=== PATIENT | female | born 1990 | race Caucasian/White ===

== ENCOUNTER 2024-11-11 08:14 | Outpatient (AMB) | payer OTHER, SELFPAY ==
--- NOTE | 2024-11-11 13:04 | MHC.OFFVISWM ---
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: Details: Start time: 12.55pm, End time: 1.40pm ?I spent 40 minutes speaking with the patient on the phone plus an additional 5 minutes reviewing and updating records for a total of 45 minutes HPI Comments Details: Previous weight loss efforts: Wegovy up to 2.4mg: lost 50lbs, Zepbound up to 7.5mg: no weight loss, Atkins, Grapefruit diet Wakes up: 6.20am, Sleeps: 8pm Breakfast: skips Lunch: 12pm (Fairlife or Nutri,or food) Dinner: 6pm (rice, potatoes, or pasta, protein) Snacks: 4pm (chips, or candy) Exercise: none Beverages: Coffee: none, Tea: none, Soda: none, Juice: none, ETOH: none PFSH Medical History (Updated 11/11/24 @ 13:07 by Dax Mercado MD) GERD (gastroesophageal reflux disease) Anxiety Depression Morbid obesity Surgical History (Updated 11/08/24 @ 14:04 by Jennifer Magana CMA) Hx of wisdom tooth extraction Family History (Updated 11/08/24 @ 13:30 by Jennifer Magana CMA) Mother No problems noted. Father No problems noted. Social History (Updated 11/08/24 @ 13:30 by Jennifer Magana CMA) Alcohol intake: never Patient Tobacco Use Status: Never used Tobacco Telehealth Telehealth Telehealth Platform: Telephone Location of provider rendering services: practice address Location of patient: address on file Patient Identification confirmed using: Name, : Yes Telehealth method: voice only Patient verbally consented to treatment: Yes Patient verbally consented to billing insurance company: Yes Patient informed of any privacy concerns related to visit: Yes Minutes spent on Phone/Video with Pt.: 45 Assessment & Plan Assessment & Plan (1) Morbid obesity: Code(s): E66.01 - Morbid (severe) obesity due to excess calories Category: Medical Plan: 1.? Plan for lap sleeve gastrectomy. If diaphragmatic or ventral hernias are present at time of surgery, these will be repaired laparoscopically as well. I emphasized the importance of close follow-up, adherence to instructions and good communication. The surgery does not replace the need to change your lifestlyle which is the cause of the obesity problem. The surgery provides the motivation to try again to change your lifestyle, it reduces the appetite and make the transition to a better lifestyle easier and doubles the amount of weight you would lose compared to doing the lifestyle change without the surgery. You will need to be on a liquid diet with protein shakes for 2 weeks before surgery to maximize weight loss and boost your nutritional status to recover better from surgery and also for the first two weeks after surgery to let the stomach heal before we introduce other foods. After the first 2 weeks we will introduce protein bars and soft foods like scrambled eggs, cottage cheese and yogurt and after the 6th week will introduce meat, fish and cooked vegetables in small amounts. Over time you should be able to eat everything in small amounts. Side effects like nausea, vomiting, heartburn or abdominal pain are not common in the practice unless you are not following in the practice. This operation requires lifetime commitment to following in our practice and communication with me. You will much less weight and experience side effects if you don?t communicate or not following in the practice. Complications are rare and in our practice is about 1/10 of the national average. However, you can develop bleeding that may require transfusion (hasn?t happened for year in the practice), you may from complications (we did not have any deaths in the practice) and infections. Infections are usually a result of breakdown in communication or not understanding or following directions correctly. They are difficult to treat, they can happen during the first 6 weeks, they may require to be in the hospital for weeks or even months, not being able to eat by mouth and you may have drains and surgeries to try and correct the issue. Other risks and complications include possible conversion to an open procedure, leaks, small bowel obstruction, blood clots, cardiac, or pulmonary complications, as fdc complications such as ulcers, insufficient weight loss and vitamin deficiencies. 2. Nutritional counseling. Start with one premade FAIRLIFE protein shake (mix 4oz of Fairlife mixed with 4oz low fat unsweetened almond milk each) at 7am-9am, one protein bar (Fit Crunch protein bar, buy at [employer], or [employer]) at 10am-12pm, another premade FAIRLIFE protein shake (mix 4oz of Fairlife mixed with 4oz low fat unsweetened almond milk each) at 1pm-3pm, another Fit Crunch protein bar,? dinner at 7pm (8 forks of protein and 8 forks of salad/vegetables). So you do 2 protein shakes, 2 protein bars and one meal per day. Meal to include lean meat (beef, fish, pork, turkey, chicken), or chinese yogurt, or egg whites, or beans with a salad with olive oil and fruits (berries, pears, apples, kiwi). Avoid salt, breads, potatoes, rice, pasta, desserts. 3. Each shake would be drunk slowly, like coffee in a period of 2 hours. 4. Cut each bar in 4 pieces and eat each piece in 30min ?to make each bar last 2 hours. 5. I emphasized the importance of measuring accurately the food portion and measure it when serving the food in plate 6. The meal portions include 8 full-size forks of meat and 8 full-size forks of salad. You always eat the meat portion but you can replace up to 4 forks for salad/vegetables with rice, potatoes or pasta, or a fruit ?if you like. The less you do it the better weight loss will be. 7. One full-size fork is what it can be scooped on the fork without falling aside and not what can be bit with the fork. Use regular forks like those you find in a typical restaurant. 8.? Please buy the body composition scale we discussed and send me weight measurements as soon as possible and then once a week. Always include your diet and exercise plan. 9. Start walking outside daily, tracking calories with the [employer] keila with a goal of 300 calories per day, daily. Goal is to burn 2000 calories per week on exercise, which means either 300 calories daily, or 400 calories 5 days per week, or 500 calories 4 days per week, or 650 calories 3 days per week. 10. The best choice would be to purchase a stationary bike, elliptical or treadmill at home that can track calories. If you get one, please start stationary bike at a resistance level of 4.0 Increase level by 1.0 every 3 min to a max level of 10.0. Stay at this level for 3 min and then return to level 4.0 and repeat same steps until 300 calories are burned. Goal is to burn 2000 calories per week on exercise 11.?It is important of avoiding and for at least 18 months postoperatively and has been discussed at the infosession. 12. Goal is to lose at least 1.5-2lbs per week 13. Goal to lose 10% of your weight before surgery, which is about 24lbs. Ultimate weight goal: 215lbs before surgery 14. Please follow the diet plan exactly without any change. If you don't like something about the plan or you feel hungry you need to communicate with me so I can help you revise the plan. You should not change the plan yourself 15. To be scheduled for EGD to assess the stomach's anatomy. The possibility of biopsies was discussed. Patient needs to avoid use of NSAIDs and aspirin for 1 week prior to EGD. You must be on liquids only the day before your endoscopy. Risks of perforation and bleeding was discussed with the patient. This will be an outpatient procedure with IV sedation. Orders: Orders Hemoglobin A1c Today E66.01 - Morbid (severe) obesity due to excess calories, K21.9 - Gastro-esophageal reflux disease without esophagitis H Pylori Breath Test Today E66.01 - Morbid (severe) obesity due to excess calories, K21.9 - Gastro-esophageal reflux disease without esophagitis Comprehensive Met. Panel Today E66.01 - Morbid (severe) obesity due to excess calories, K21.9 - Gastro-esophageal reflux disease without esophagitis Vitamin B12 and Folate Today E66.01 - Morbid (severe) obesity due to excess calories, K21.9 - Gastro-esophageal reflux disease without esophagitis Zinc Today E66.01 - Morbid (severe) obesity due to excess calories, K21.9 - Gastro-esophageal reflux disease without esophagitis C Reactive Protein Today E66.01 - Morbid (severe) obesity due to excess calories, K21.9 - Gastro-esophageal reflux disease without esophagitis Vitamin B1 Today E66.01 - Morbid (severe) obesity due to excess calories, K21.9 - Gastro-esophageal reflux disease without esophagitis TSH reflex Free T4 Today E66.01 - Morbid (severe) obesity due to excess calories, K21.9 - Gastro-esophageal reflux disease without esophagitis Ferritin Today E66.01 - Morbid (severe) obesity due to excess calories, K21.9 - Gastro-esophageal reflux disease without esophagitis XR chest 2V Today E66.01 - Morbid (severe) obesity due to excess calories, K21.9 - Gastro-esophageal reflux disease without esophagitis Insulin Today E66.01 - Morbid (severe) obesity due to excess calories, K21.9 - Gastro-esophageal reflux disease without esophagitis Complete Blood Count Auto Diff Today E66.01 - Morbid (severe) obesity due to excess calories, K21.9 - Gastro-esophageal reflux disease without esophagitis Lipid Panel Today E66.01 - Morbid (severe) obesity due to excess calories, K21.9 - Gastro-esophageal reflux disease without esophagitis IRON PROFILE Today E66.01 - Morbid (severe) obesity due to excess calories, K21.9 - Gastro-esophageal reflux disease without esophagitis Vitamin A Today E66.01 - Morbid (severe) obesity due to excess calories, K21.9 - Gastro-esophageal reflux disease without esophagitis Vitamin D 25-OH Total Today E66.01 - Morbid (severe) obesity due to excess calories, K21.9 - Gastro-esophageal reflux disease without esophagitis US abdomen comp w elastography Today E66.01 - Morbid (severe) obesity due to excess calories, K21.9 - Gastro-esophageal reflux disease without esophagitis ECG 12 lead EKG Today E66.01 - Morbid (severe) obesity due to excess calories, K21.9 - Gastro-esophageal reflux disease without esophagitis FL upper GI w air Today E66.01 - Morbid (severe) obesity due to excess calories, K21.9 - Gastro-esophageal reflux disease without esophagitis Referrals Behavioral Health Referral E66.01 - Morbid (severe) obesity due to excess calories, K21.9 - Gastro-esophageal reflux disease without esophagitis Nutrition/Dietitian Referral E66.01 - Morbid (severe) obesity due to excess calories, K21.9 - Gastro-esophageal reflux disease without esophagitis
[2024-11-11 13:15] VITALS: BMI 41.0
== END 2024-11-11 13:40 | disposition home or self-care (01) ==
LOC: HO.HBS 08:14
PROVIDERS: PCP Nurse Practitioner Primary Care; Visit Provider Surgery
DX: E66.01 Morbid (severe) obesity due to excess calories (principal); Z68.41 Body mass index [BMI] 40.0-44.9, adult
CPT/HCPCS: 99204

== ENCOUNTER → 2024-11-13 13:57 | Outpatient (REF) | payer OTHER, SELFPAY ==
--- OUTSIDE RECORDS SUMMARY | 2023-07-20 11:30 | XMS_ITS ---
Author Organization [facility] Address [address] [place] [address] Care Team Providers Care Curator Of Photography And Prints Name Role Phone ESTHER DOMINGUEZ Unavailable [phone] Encounters Encounter Location Date Provider Diagnosis [facility] [place] [address] 07/20/2023 ESTHER DOMINGUEZ Plan Of Treatment No Information Progress Notes * ANDRÉS LANZAB:1990 (34 yo F)Acc No.[id number]:07/20/2023 Patient: Janine DOMINGONITINMAMI Provider: Lorin HAYS PA-C :1990 A ge:32 Y S ex:Female Date:07/20/2023 Address:[address] [facility] [facility] Subjective: * Chief Complaints: * * Medical History: Objective: * Vitals: Assessment: Plan: * Treatment: * Images: Billing Information: * Visit Code: * Procedure Codes: * Electronic signature of YUNI DOMINGUEZ PA-C on 11/13/2024 at 04:29 PM EDT Sign off status: Pending * Provider: Lorin HAYS PA-C Date: 07/20/2023 Generated for Eric giordano/Blayne/Camille on: 11/13/2024 04:29 PM EDT
--- OUTSIDE RECORDS SUMMARY | 2024-02-29 04:45 | XMS_ITS ---
Author Organization [facility] Address [address] [place] [address] Care Team Providers Care Tipple Operator Name Role Phone ESTHER DOMINGUEZ Unavailable [phone] Encounters Encounter Location Date Provider Diagnosis [facility] [place] [address] 02/29/2024 ESTHER DOMINGUEZ Plan Of Treatment No Information Progress Notes * ANDRÉS LANZAB:1990 (34 yo F)Acc No.[id number]:02/29/2024 Patient: Janine DOMINGO MAMI Provider: Lorin HAYS PA-C :1990 A ge:33 Y S ex:Female Date:02/29/2024 Address: [address] [facility] Subjective: * Chief Complaints: * * Medical History: Objective: * Vitals: Assessment: Plan: * Treatment: * Images: Billing Information: * Visit Code: * Procedure Codes: * Electronic signature of YUNI DOMINGUEZ PA-C on 11/13/2024 at 04:29 PM EDT Sign off status: Pending * Provider: Lorin HAYS PA-C Date: 0 02/29/2024 Generated for Eric giordano/Blayne/Camille on: 11/13/2024 04:29 PM EDT
--- OUTSIDE RECORDS SUMMARY | 2024-11-05 10:00 | XMS_ITS ---
Author Organization [facility] Address [address] [address] Care Team Providers Care Print Shop Helper Name Role Phone Rosa Isela Kelly Primary Care Provider UnavailJUDY Lazar Unavailable [phone] REASON FOR VISIT 6wk Encounters Encounter Location Date Provider Diagnosis [facility] [address] [address] 11/05/2024 JUDY ANDERSON Plan Of Treatment Next Appt Details Provider Name:JUDY ANDERSON, 11/27/2024 02:00:00 PM, [address] [address], [place], [address], Progress Notes * Alyssa ALDRIDGESherB:1990 (34 yo F)Acc No.[id number]:11/05/2024 Progress Note Patient: Kanika GOODMAN Provider: Sanna Magdaleno DPM :1990 A ge:34 Y S ex:Female Date:11/05/2024 Phone: Address:[address], [facility] Pcp:Rosa Isela Kelly Subjective: * Chief Complaints: * 1 . 6wk. * Medical History: Objective: * Vitals: Assessment: Plan: * Treatment: * Billing Information: * Visit Code: * Procedure Codes: * Electronic signature of LISE ANDERSON D.P.M. on 11/13/2024 at 04:30 PM EDT Sign off status: Pending * Provider: Sanna Magdaleno DPM Date: 0 11/05/2024 Generated for Eric giordano/Faxing/eTransmitting on: 0 11/13/2024 04:30 PM EDT
--- NOTE | ~2024-11-13 | XR_ITS ---
EXAMINATION: XR CHEST CLINICAL INFORMATION: E66.01 - Morbid (severe) obesity due to excess calories COMPARISON: None available. TECHNIQUE: PA and lateral views. FINDINGS: No hyperinflation. No consolidation, pleural effusion or pneumothorax. Cardiomediastinal silhouette size is normal. S-shaped curvature of the thoracic spine. Mild multilevel thoracic stenosis. XR/XR chest 2V IMPRESSION: No acute airspace disease. Scoliosis, thoracic spine. Electronically signed by: Jay Ledezma MD 11/13/2024 02:56 PM EDT
--- NOTE | 2024-11-13 14:05 | ECG_ITS ---
Test Reason : E66.01 Blood Pressure : */* mmHG Vent. Rate : 79 BPM Atrial Rate : 79 BPM P-R Int : 176 ms QRS Dur : 72 ms QT Int : 394 ms P-R-T Axes : 59 27 42 degrees QTcB Int : 451 ms Normal sinus rhythm Normal ECG No previous ECGs available Referred By: Dax Mercado Electronically Signed By: Carlos Galo
--- OUTSIDE RECORDS SUMMARY | 2024-11-13 16:29 | XMS_ITS | Patient Health Record ---
Author Organization [facility] [address] Address [address] [place] [address] Care Team Providers Care Uniform Patrol Police Officer Name Role Phone ESTHER DOMINGUEZ Unavailable [phone] Allergies No Known Allergies Reason For Referral No Information Medications Medication SIG (Take, Route, Fr equency, Duration) Notes Start Date End Date Status Wegovy 2.4 MG/0.75ML INJECT 2.4 MG SUBCU TANEOUS WEEKLY 30 DAYS; Duration: 90 days Active Berberine HCI 500 MG as directed Orally Active Lexapro 20 MG 1 tablet Orally Once a day Active LORazepam 0.5 MG 1 tablet as needed O rally twice a day Active Wegovy 1.7 MG/0.75ML 1.7 mg Subcutaneous weekly; Duration: 30 days Active Wellbutrin XL 300 MG 1 tablet in the mor elvin Orally Once a day Active Problems Problem Type SNOMED Code ICD Code Onset Dates Problem Status W/U Status Risk Notes Problem Morbid obesity (disorder) (095417473) Morbid (severe) obesity due to excess calories (E66.01) Active confirmed Problem Obesity (064608836) Other obesity (E66.8) Active confirmed Problem Adult health examination (151663033) Encounter for general adult medical examination without abnormal findings (Z00.00) Active confirmed Problem Hyperlipidaemia (63682593) Hyperlipidemia, unspecified hyperlipidemia type (E78.5) Active confirmed Problem Body mass index 40+ - morbidly obese (350105464) BMI 40.0-44.9, adult (Z68.41) Active confirmed Problem Obese class II (854396863514491) BMI 35.0-35.9,adult (Z68.35) Active confirmed Problem Diabetes mellitus screening (851692871) Screening for diabetes mellitus (Z13.1) Active confirmed Problem Obese class II (572590873149584) BMI 39.0-39.9,adult (Z68.39) Active confirmed Problem Obese class II (379639642300665) BMI 38.0-38.9,adult (Z68.38) Active confirmed Problem Body mass index 30.00 to 34.99 (103880141544562) BMI 34.0-34.9,adult (Z68.34) Active confirmed Encounters Encounter Location Date Provider Diagnosis [facility] [address] [place] [address] 11/14/2023 ESTHER DOMINGUEZ [facility] [address] [place] [address] 01/15/2024 ESTHER DOMINGUEZ Plan Of Treatment Pending Test Test Name Order Date LIPID PANEL 12/31/2022 Insulin Level 12/31/2022 Insurance Providers Payer Name Payer Address Payer Phone Subscriber Number Group Number Insured Name Patient Relationship to Insured Coverage Start Date Coverage End Date [facility] [address] [place] [address] [id number] MAMI LANZA Self - patient is the insured Medications Administered Medication Instructions Date of Administration Dosage Notes Semaglutide 12/31/2022 Semaglutide 01/06/2023 0.25 mg LLQ SQ Semaglutide 01/14/2023 0.5 mg LRQ SQ Semaglutide 01/20/2023 0.5 Semaglutide 01/28/2023 0.5 mg LLQ SQ Semaglutide 02/03/2023 0.5 mg Semaglutide 02/17/2023 0.5 mg lot#[id number] 0.5mg Semaglutide 02/24/2023 1 mg Semaglutide 03/03/2023 1 mg Semaglutide 03/10/2023 1 mg Semaglutide 03/17/2023 1.0 mg L tricep SQ Semaglutide 03/23/2023 1 mg Semaglutide 03/31/2023 Semaglutide 04/08/2023 1 Medical (General) History Medical History History ICD Code hyperlipidemia headaches weight change seasonal allergies depression
--- OUTSIDE RECORDS SUMMARY | 2024-11-13 16:30 | XMS_ITS | Patient Health Record ---
Author Organization [facility] Address [address] [address] Care Team Providers Care Cellular Biologist Name Role Phone [place]Rosa Isela abbasi Primary Care Provider UnavailJUDY Lazar Unavailable [phone] Allergies No Known Allergies Reason For Referral No Information Medications Medication SIG (Take, Route, Frequency, Duration) Notes Start Date End Date Status Zepbound 7.5 MG/0.5ML 0.5 mL Subcutaneous Not-Taking Omeprazole 20 MG 1 capsule 1/2 to 1 h our before morning meal Orally Once a day Active LORazepam 0.5 MG 1 tablet at bedtime as needed Orally Once a day Active Escitalopram Oxalate 20 MG 1 tablet Orally Once a day Active buPROPion HCl ER (XL) 300 MG 1 tablet in the morning Orally Once a day Active Ibuprofen 800 MG 1 tablet with food o r milk as needed Orally Three times a day; Duration: 30 days 10/25/2024 Active Problems Problem Type SNOMED Code ICD Code Onset Dates Problem Status W/U Status Risk Notes Problem Plantar fasciitis (414822504) Plantar fasciitis (M72.2) Active confirmed Vital Signs Heart Rate 88 /min 10/25/2024 Temperature 97.3 degrees Fahrenheit 10/25/2024 Respiratory Rate 16 /min 10/25/2024 Height 5ft 5in in 10/25/2024 Weight 235.5 lbs 10/25/2024 BMI 39.18 kg/m2 10/25/2024 Procedures Procedure Date Ordered Date Performed Result Body Sit e INJ TENDON SHEATH/LIGAMENT/FASCIA 09/24/2024 N/ A WALKING BOOT PNEUMATIC AND/OR VAC 10/25/2024 N/ A Encounters Encounter Location Date Provider Diagnosis [facility] [address] [address] 09/24/2024 JUDY MONICA Pain of right heel M79.671 and Plantar fasciitis M72.2 [facility] [address] [address] 10/25/2024 JUDY MONICA Pain of right heel M79.671 and Plantar fasciitis M72.2 [facility] [address] [address] 10/14/2024 JUDY MONICA Assessments Encounter Date Diagnosis (ICD Code) Assessment Notes Treatment Notes Treatment Clinical Notes Section Notes 09/24/2024 Pain of right heel (ICD-10 - M79.671) Patient examined and evaluated today. Three weightbearing radiographs of the right foot were taken in the office and reviewed with the patient. I discussed the etiology of plantar fasciitis. Conservative treatment options were reviewed, which consisted of calf stretching exercises, stiff soled shoe gear, icing, over the counter and custom foot orthoses, physical therapy, oral anti-inflammatories, steroid injection, night splint/Pineola sock, ESWT, and immobilization with CAM boot or cast for 6 weeks. Patient has agreed to try calf stretching exercises two times daily. The patient was educated and shown the proper way to stretch. A hand out was given in todays visit with instructions. Advised patient to ice 20 minutes on and 20 minutes off for an hour before bed. She wished to also move forward with the steroid injection. This was given into the right plantar fascia. She tolerated this well. She was given post injection instructions and advised to increase the icing. I will see her back in 6 weeks or sooner if needed. 09/24/2024 Plantar fasciitis (ICD-10 - M72.2) 10/25/2024 Pain of right heel (ICD-10 - M79.671) Patient examined and evaluated today. She continues to struggle with plantar right heel pain that seems to be associated with the plantar fascia. At her last visit she was given a steroid injection along with a routine of stretches and icing to do. She has continued with pain. It does sound like she is on her feet quite a bit with working three jobs. She states that she is unable to go to PT because of the lack of time she has with the jobs. I discussed the stretching is so improtant in decreasing tension and getting the fascia to heal and also decreasing recurrence. I again discussed that she needs to be avoiding all shoe gear that is flimsy and nonsupportive. She needs to focus on wearing a stiffer soled athletic shoe. We discussed the options of repeat injection therapy, shockwave therapy, and using a CAM boot for immobilization. She wished to move forward with the CAM boot. I did stress that this needs to be worn in place of a shoe. She can not drive in it and therefore will need to take it off while driving and then put it back on. She can also remove while sleeping and bathing. The boot will immobilize her ankle and decrease overall stress to the foot. She will want to wear a shoe on the otherside with a bigger sole so that she is not too uneven when walking. She will need to wear this boot for the next 4 weeks. I advised she also continue to ice and use the NSAIDs as needed. I did send over a Rx for ibuprofen 800mg to take three times a day with food as needed and can also alternate this with tylenol. All Risks of taking NSAIDS were reviewed with the patient today. Risks included increase in blood pressure, heart attack, stroke, gastrointestinal irritation leading to ulceration and bleeding, renal injury, renal failure, and allergic reaction. I fitted her into a low tide pneumatic CAM boot today and showed her how to use this. She was also given written instructions. I provided her with a letter for work if needed. I want to see her back in 4 weeks to re-evaluate. I encouraged her to call in the meantime with any questions or concerns. 10/25/2024 Plantar fasciitis (ICD-10 - M72.2) Plan Of Treatment Pending Test Test Name Order Date X ray : Foot, right 3v 09/24/2024 INJ TENDON SHEATH/LIGAMENT/FASCIA 2024 WALKING BOOT PNEUMATIC AND/OR VAC 2024 Next Appt Details Provider Name:JUDY ANDERSON, 11/27/2024 02:00:00 PM, [address] [address], [place], [address], Insurance Providers Payer Name Payer Address Payer Phone Subscriber Number Group Number Insured Name Patient Relationship to Insured Coverage Start Date Coverage End Date [facility] [address] [address] [place] [address] [id number] Kanika Aldridge Self - patient is the insured Medications Administered Medication Instructions Date of Administration Dosage Notes dexAMETHasone Sod Phosphate PF 09/24/2024 2 mg Kenalog 09/24/2024 5 mg Medical (General) History Medical History History ICD Code Anxiety Ovarian cyst Obesity (BMI 30.0-39.9)
== END ==
LOC: HO.CARD 13:57
PROVIDERS: PCP Nurse Practitioner Primary Care; Visit Provider Surgery
DX: K21.9 Gastro-esophageal reflux disease without esophagitis (principal); E66.01 Morbid (severe) obesity due to excess calories
CPT/HCPCS: 71046; 93005

== ENCOUNTER → 2024-11-13 14:05 | Outpatient (BNV) | payer OTHER, SELFPAY | PROVIDERS: PCP Nurse Practitioner Primary Care; Visit Provider Internal Medicine Cardiovascular Disease | DX: E66.01 Morbid (severe) obesity due to excess calories (principal); Z68.41 Body mass index [BMI] 40.0-44.9, adult | CPT/HCPCS: 93010 ==

== ENCOUNTER → 2024-11-13 14:33 | Outpatient (BNV) | payer OTHER, SELFPAY | PROVIDERS: PCP Nurse Practitioner Primary Care; Visit Provider Radiology Diagnostic Radiology | DX: E66.01 Morbid (severe) obesity due to excess calories (principal); Z68.41 Body mass index [BMI] 40.0-44.9, adult; M41.34 Thoracogenic scoliosis, thoracic region | CPT/HCPCS: 71046 ==

== ENCOUNTER 2024-11-14 08:18 | Outpatient (REF) | payer OTHER, SELFPAY ==
--- OUTSIDE RECORDS SUMMARY | 2023-07-20 11:30 | XMS_ITS ---
Author Organization [facility] Address [address] [place] [address] Care Team Providers Care Nutter Up Name Role Phone ESTHER DOMINGUEZ Unavailable [phone] Encounters Encounter Location Date Provider Diagnosis [facility] [place] [address] 07/20/2023 ESTHER DOMINGUEZ Plan Of Treatment No Information Progress Notes * ANDRÉS LANZAB:1990 (34 yo F)Acc No.[id number]:07/20/2023 Patient: Janine DOMINGONITINMAMI Provider: Lorin HAYS PA-C :1990 A ge:32 Y S ex:Female Date:07/20/2023 Address:[address] [facility] [facility] Subjective: * Chief Complaints: * * Medical History: Objective: * Vitals: Assessment: Plan: * Treatment: * Images: Billing Information: * Visit Code: * Procedure Codes: * Electronic signature of YUNI DOMINGUEZ PA-C on 11/14/2024 at 08:44 AM EDT Sign off status: Pending * Provider: Lorin HAYS PA-C Date: 0 07/20/2023 Generated for Eric giordano/Blayne/Camille on: 0 11/14/2024 08:44 AM EDT
--- OUTSIDE RECORDS SUMMARY | 2024-02-29 04:45 | XMS_ITS ---
Author Organization [facility] Address [address] [place] [address] Care Team Providers Care Physical Chemistry Teacher Name Role Phone ESTHER DOMINGUEZ Unavailable [phone] Encounters Encounter Location Date Provider Diagnosis [facility] [place] [address] 02/29/2024 ESTHER DOMINGUEZ Plan Of Treatment No Information Progress Notes * ANDRÉS LANZAB:1990 (34 yo F)Acc No.[id number]:02/29/2024 Patient: Janine DOMINGO MAMI Provider: Lorin HAYS PA-C :1990 A ge:33 Y S ex:Female Date:02/29/2024 Address: [address] [facility] Subjective: * Chief Complaints: * * Medical History: Objective: * Vitals: Assessment: Plan: * Treatment: * Images: Billing Information: * Visit Code: * Procedure Codes: * Electronic signature of YUNI DOMINGUEZ PA-C on 11/14/2024 at 08:44 AM EDT Sign off status: Pending * Provider: Lorin HAYS PA-C Date: 0 02/29/2024 Generated for Eric giordano/Blayne/Camille on: 0 11/14/2024 08:44 AM EDT
--- OUTSIDE RECORDS SUMMARY | 2024-11-05 10:00 | XMS_ITS ---
Author Organization [facility] Address [address] [address] Care Team Providers Care Working Second Hand Name Role Phone Rosa Isela Kelly Primary Care Provider UnavailJUDY Lazar Unavailable [phone] REASON FOR VISIT 6wk Encounters Encounter Location Date Provider Diagnosis [facility] [address] [address] 11/05/2024 JUDY ANDERSON Plan Of Treatment Next Appt Details Provider Name:JUDY ANDERSON, 11/27/2024 02:00:00 PM, [address] [address], [place], [address], Progress Notes * Alyssa ALDRIDGESherB:1990 (34 yo F)Acc No.[id number]:11/05/2024 Progress Note Patient: Kanika GOODMAN Provider: Sanna Magdaleno DPM :1990 A ge:34 Y S ex:Female Date:11/05/2024 Phone: Address:[address], [facility] Pcp:Rosa Isela Kelly Subjective: * Chief Complaints: * 1 . 6wk. * Medical History: Objective: * Vitals: Assessment: Plan: * Treatment: * Billing Information: * Visit Code: * Procedure Codes: * Electronic signature of LISE ANDERSON D.P.M. on 11/14/2024 at 08:44 AM EDT Sign off status: Pending * Provider: Sanna Magdaleno DPM Date: 0 11/05/2024 Generated for Eric giordano/Faxing/eTransmitting on: 0 11/14/2024 08:44 AM EDT
[2024-11-14 08:33] LABS: MANUAL DIFF FLAG NO
--- OUTSIDE RECORDS SUMMARY | 2024-11-14 08:44 | XMS_ITS | Patient Health Record ---
Author Organization [facility] [address] Address [address] [place] [address] Care Team Providers Care Freelance Interpreter/Translator Name Role Phone ESTHER DOMINGUEZ Unavailable [phone] Allergies No Known Allergies Reason For Referral [...] Status Risk Notes Problem Morbid obesity (disorder) (115974573) Morbid (severe) obesity due to excess calories (E66.01) Active confirmed Problem Obesity (906406283) Other obesity (E66.8) Active confirmed Problem Adult health examination (586733187) Encounter for general adult medical examination without abnormal findings (Z00.00) Active confirmed Problem Hyperlipidaemia (38107195) Hyperlipidemia, unspecified hyperlipidemia type (E78.5) Active confirmed Problem Body mass index 40+ - morbidly obese (221007219) BMI 40.0-44.9, adult (Z68.41) Active confirmed Problem Obese class II (727756185140335) BMI 35.0-35.9,adult (Z68.35) Active confirmed Problem Diabetes mellitus screening (112038170) Screening for diabetes mellitus (Z13.1) Active confirmed Problem Obese class II (398745009036581) BMI 39.0-39.9,adult (Z68.39) Active confirmed Problem Obese class II (656455842582157) BMI 38.0-38.9,adult (Z68.38) Active confirmed Problem Body mass index 30.00 to 34.99 (676517875289931) BMI 34.0-34.9,adult (Z68.34) Active confirmed Encounters Encounter Location Date Provider Diagnosis [facility] [address] [place] [address] 01/15/2024 ESTHER DOMINGUEZ Plan Of Treatment Pending Test Test Name Order Date LIPID PANEL 12/31/2022 Insulin Level 12/31/2022 Insurance Providers Payer Name Payer Address Payer Phone Subscriber Number Group Number Insured Name Patient Relationship to Insured Coverage Start Date Coverage End Date [facility] [address] [place] [address] [id number] MAMI LANZA Self - patient is the insured Medications Administered Medication Instructions Date of Administration Dosage Notes Semaglutide 12/31/2022 Semaglutide 01/06/2023 0.25 mg LLQ SQ Semaglutide 01/14/2023 0.5 mg LRQ SQ Semaglutide 01/20/2023 0.5 Semaglutide 01/28/2023 0.5 mg LLQ SQ Semaglutide 02/03/2023 0.5 mg Semaglutide 02/17/2023 0.5 mg lot#[id number] 0.5mg Semaglutide 02/24/2023 1 mg Semaglutide 03/03/2023 1 mg Semaglutide 03/10/2023 1 mg Semaglutide 03/17/2023 1.0 mg L tricep SQ Semaglutide 03/23/2023 1 mg Semaglutide 03/31/2023 Semaglutide 04/08/2023 1 Medical (General) History Medical History History ICD Code hyperlipidemia headaches weight change seasonal allergies depression
--- OUTSIDE RECORDS SUMMARY | 2024-11-14 08:44 | XMS_ITS | Patient Health Record ---
Author Organization [facility] Address [address] [address] Care Team Providers Care Research Instrumentation Technician Name Role Phone BlandonRosa Isela abbasi Primary Care Provider UnavailJUDY Lazar Unavailable [phone] Allergies No Known Allergies Reason For Referral [...] W/U Status Risk Notes Problem Plantar fasciitis (932578312) Plantar fasciitis (M72.2) Active confirmed Vital Signs [...] A Encounters Encounter Location Date Provider Diagnosis [facility] [address] [address] 09/24/2024 JUDY MONICA Pain of right heel M79.671 and Plantar fasciitis M72.2 [facility] [address] [address] 10/25/2024 JUDY MONICA Pain of right heel M79.671 and Plantar fasciitis M72.2 [facility] [address] [address] 10/14/2024 JUDY MONICA Assessments Encounter Date Diagnosis [...] physical therapy, oral anti-inflammatories, steroid injection, night splint/[place] sock, ESWT, and immobilization with CAM boot [...] Name:JUDY ANDERSON, 11/27/2024 02:00:00 PM, [address] [address], [place], [address], Insurance Providers Payer Name Payer Address Payer Phone Subscriber Number Group Number Insured Name Patient Relationship to Insured Coverage Start Date Coverage End Date [facility] [address] [address] [place] [address] [id number] Kanika Aldridge Self - patient is the insured Medications Administered Medication Instructions Date of Administration Dosage Notes dexAMETHasone Sod Phosphate PF 09/24/2024 2 mg Kenalog 09/24/2024 5 mg Medical (General) History Medical History History ICD Code Anxiety Ovarian cyst Obesity (BMI 30.0-39.9)
[2024-11-14 08:46] LABS: Hematocrit 28.6 % (37.0-47.0); Hemoglobin 8.6 g/dl (12.0-16.0); Imm Gran Abs Auto 0.05 X10*3/uL (0.00-0.03); Imm Gran Pct Auto 0.6 % (0.0-0.4); Lymphocytes Absolute Auto 2.2 X10*3/uL (1.2-4.9); Mean Corpuscular HGB Conc 30.1 g/dl (31.0-35.0); Mean Corpuscular Hemoglobin 20.3 pg (27.0-33.0); Mean Corpuscular Volume 67.5 fL (80.0-98.0); NRBC Abs Auto 0.000 X10*3/uL (0.0-0.012); NRBC Pct Auto 0.0 /100WBC (0.0-0.2); Platelet Count 487 X10*3/uL (160-400); Red Blood Count 4.24 X10*6/uL (4.20-5.50); White Blood Count 8.9 X10*3/uL (4.8-10.8)
[2024-11-14 09:49] LABS: Alanine Aminotransferase 20 U/L (0-31); Albumin Level 4.6 g/dL (3.5-5.0); Alkaline Phosphatase 109 U/L (39-117); Anion Gap 10 (12-20); Aspartate Amino Transferase 23 U/L (5-31); Blood Urea Nitrogen 15 mg/dL (9-16); Calcium 9.2 mg/dL (8.4-10.2); Carbon Dioxide 28 mmol/L (22-29); Chloride 106 mmol/L (96-108); Cholesterol 179 mg/dL (<200); Estimated Glomerular Filt Rate > 60; HDL Cholesterol 56 mg/dL (>40); Iron 27 mcg/dL (30-160); Percent Iron Saturation 7 % (15-50); Potassium 4.4 mmol/L (3.3-5.1); Sodium 140 mmol/L (135-145); Total Iron Binding Capacity 399 mcg/dL (228-428); Total Protein 7.2 g/dL (6.5-8.0); Triglycerides 103 mg/dL (<150); Unsaturated Iron Binding 372 ug/dL
[2024-11-14 10:07] LABS: Ferritin 8 ng/mL (10-122)
[2024-11-14 10:13] LABS: Folate 6.6 ng/mL (> or = 4.0); Vitamin B12 632 pg/mL (200-900)
[2024-11-14 10:31] LABS: Hemoglobin A1C 80.9170 umol/L; Total Hemoglobin (HGBA1C) 2223.6224 umol/L
== END 2024-11-14 08:19 | disposition home or self-care (01) ==
LOC: HO.LAB 08:18
PROVIDERS: PCP Nurse Practitioner Primary Care; Visit Provider Surgery
DX: Z13.6 Encounter for screening for cardiovascular disorders (principal); Z13.29 Encounter for screening for other suspected endocrine disorder; Z13.1 Encounter for screening for diabetes mellitus; E66.01 Morbid (severe) obesity due to excess calories; K21.9 Gastro-esophageal reflux disease without esophagitis
CPT/HCPCS: 36415; 80053; 80061; 82306; 82607; 82728; 82746; 83036; 83525; 83540; 84425; 84443; 84590; 84630; 85025; 86140

== ENCOUNTER 2024-11-27 14:47 | Outpatient (REF) | payer OTHER, SELFPAY ==
--- NOTE | ~2024-11-27 | US_ITS ---
EXAMINATION: US COMPLETE ABDOMEN WITH LIVER ELASTOGRAPHY CLINICAL INFORMATION: Obesity COMPARISON: None available. TECHNIQUE: Real-time imaging of the abdominal viscera. Noninvasive ultrasound liver fibrosis assessment is performed using Nikolay ElastPQ point quantification shear wave elastography (pSWE) with a C5-2 MHz transducer. Multiple elastography samples are obtained. FINDINGS: PANCREAS: The visualized pancreatic head and body are normal in appearance. The remainder of the pancreas is obscured from visualization by the overlying bowel gas. ABDOMINAL AORTA: No aortic aneurysm is seen. INFERIOR VENA CAVA: Visualized portions are normal. LIVER: The liver demonstrates normal size, contour. Increased parenchymal echogenicity. No focal lesion or intrahepatic biliary duct dilatation. The right lobe measures 15.1 cm in length. The left lobe measures 9.4 cm in length. Portal flow is hepatopedal Shear wave liver elastography median stiffness is 1.67 m/s (reference: normal median stiffness is 1.3 m/s or less). IQR/median stiffness to assess sampling precision is 0.18 (reference: good quality data set is IQR/median stiffness of 0.15 or less). GALLBLADDER: The gallbladder is physiologically distended without evidence of stones, sludge, polyps, wall thickening or pericholecystic fluid. COMMON BILE DUCT: Normal in caliber measuring 0.3 cm in diameter. RIGHT KIDNEY: No hydronephrosis. No renal calculi or focal parenchymal lesions. The kidney measures 10.3 cm in maximum dimension. LEFT KIDNEY: No hydronephrosis. No renal calculi or focal parenchymal lesions. The kidney measures 10.5 cm in maximum dimension. SPLEEN: Unremarkable. The spleen measures 11.4 cm in maximum dimension. FREE FLUID: None seen. US/US abdomen comp w elastography IMPRESSION: 1. There is generalized increase in hepatic echotexture, consistent with fatty infiltration or hepatocellular disease. Please correlate clinically. No focal hepatic mass or intrahepatic biliary duct dilatation is seen. 2. Liver elastography: Median stiffness measures 1.67 m/s . This is near the upper limit of the range of measurements, which would suggest: In the absence of other known clinical signs rules out advanced chronic liver disease. Recommend ongoing clinical and sonographic follow-up. REFERENCE: Society of Radiologists in Ultrasound Liver Stiffness Thresholds (2020): LIVER STIFFNESS THRESHOLDS: *Liver Stiffness equal or less than 1.3 m/s: High probability of being normal. *Liver Stiffness less than 1.7 m/s: In the absence of other known clinical signs, rules out compensated advanced chronic liver disease. *Liver Stiffness 1.7-2.1 m/s: Suggestive of compensated advanced chronic liver disease but need further test for confirmation. *Liver Stiffness over 2.1 m/s: Rules in compensated advanced chronic liver disease. *Liver Stiffness over 2.4 m/s: Suggestive of clinically significant portal hypertension. QUALITY OF DATA SET: *IQR/Median value equal or less than 0.15 implies a quality data set. *IQR/Median value over 0.15 implies a poor quality data set. SIGNIFICANT CHANGE FROM PRIOR EXAM: Significant change if liver stiffness measurement is 10% or greater from prior exam. OTHER CONSIDERATIONS: The stage of liver fibrosis may be overestimated in the setting of acute hepatitis, liver inflammation, elevated liver function tests, hepatic vascular congestion, obstructive cholestasis, non-fasting state, and infiltrative diseases such as amyloidosis and lymphoma. In some patients with NAFLD, the liver stiffness thresholds for compensated advanced chronic liver disease may be lower. In causes other than viral hepatitis and NAFLD, liver stiffness thresholds are not well established. Electronically signed by: Ze Wood MD 11/27/2024 04:10 PM EDT
== END 2024-11-27 14:48 | disposition home or self-care (01) ==
LOC: HO.US 14:47
PROVIDERS: PCP Nurse Practitioner Primary Care; Visit Provider Surgery
DX: E66.01 Morbid (severe) obesity due to excess calories (principal); K21.9 Gastro-esophageal reflux disease without esophagitis
CPT/HCPCS: 76700; 76981

== ENCOUNTER → 2024-11-27 14:49 | Outpatient (BNV) | payer OTHER, SELFPAY | PROVIDERS: PCP Nurse Practitioner Primary Care; Visit Provider Radiology Diagnostic Ultrasound | DX: E66.01 Morbid (severe) obesity due to excess calories (principal); K76.0 Fatty (change of) liver, not elsewhere classified | CPT/HCPCS: 76700 ==

== ENCOUNTER 2024-12-10 11:04 | Day surgery (SDC) | payer OTHER, SELFPAY ==
--- OUTSIDE RECORDS SUMMARY | 2023-07-20 11:30 | XMS_ITS ---
Author Organization [facility] Address [address] [place] [address] Care Team Providers Care Loading Inspector Name Role Phone ESTHER DOMINGUEZ Unavailable [phone] Encounters Encounter Location Date Provider Diagnosis [facility] [place] [address] 07/20/2023 ESTHER DOMINGUEZ Plan Of Treatment No Information Progress Notes * ANDRÉS LANZAB:1990 (34 yo F)Acc No.[id number]:07/20/2023 Patient: Janine DOMINGONITINMAMI Provider: Lorin HAYS PA-C :1990 A ge:32 Y S ex:Female Date:07/20/2023 Address:[address] [facility] [facility] Subjective: * Chief Complaints: * * Medical History: Objective: * Vitals: Assessment: Plan: * Treatment: * Images: Billing Information: * Visit Code: * Procedure Codes: * Electronic signature of YUNI DOMINGUEZ PA-C on 11/18/2024 at 01:35 PM EDT Sign off status: Pending * Provider: Lorin HAYS PA-C Date: 0 07/20/2023 Generated for Eric giordano/Blayne/Camille on: 0 11/18/2024 01:35 PM EDT
--- OUTSIDE RECORDS SUMMARY | 2024-02-29 04:45 | XMS_ITS ---
Author Organization [facility] Address [address] [place] [address] Care Team Providers Care Fence Gate Assembler Name Role Phone ESTHER DOMINGUEZ Unavailable [phone] Encounters Encounter Location Date Provider Diagnosis [facility] [place] [address] 02/29/2024 ESTHER DOMINGUEZ Plan Of Treatment No Information Progress Notes * ANDRÉS LANZAB:1990 (34 yo F)Acc No.[id number]:02/29/2024 Patient: Janine DOMINGO MAMI Provider: Lorin HAYS PA-C :1990 A ge:33 Y S ex:Female Date:02/29/2024 Address: [address] [facility] Subjective: * Chief Complaints: * * Medical History: Objective: * Vitals: Assessment: Plan: * Treatment: * Images: Billing Information: * Visit Code: * Procedure Codes: * Electronic signature of YUNI DOMINGUEZ PA-C on 11/18/2024 at 01:35 PM EDT Sign off status: Pending * Provider: Lorin HAYS PA-C Date: 0 02/29/2024 Generated for Eric giordano/Blayne/Camille on: 0 11/18/2024 01:35 PM EDT
--- OUTSIDE RECORDS SUMMARY | 2024-11-05 10:00 | XMS_ITS ---
Author Organization [facility] Address [address] [address] Care Team Providers Care Travel Assistant Name Role Phone Rosa Isela Kelly Primary Care Provider UnavailJUDY Lazar Unavailable [phone] REASON FOR VISIT 6wk Encounters Encounter Location Date Provider Diagnosis [facility] [address] [address] 11/05/2024 JUDY ANDERSON Plan Of Treatment Next Appt Details Provider Name:JUDY ANDERSON, 11/27/2024 02:00:00 PM, [address] [address], [place], [address], Progress Notes * Alyssa ALDRIDGESherB:1990 (34 yo F)Acc No.[id number]:11/05/2024 Progress Note Patient: Kanika GOODMAN Provider: Sanna Magdaleno DPM :1990 A ge:34 Y S ex:Female Date:11/05/2024 Phone: Address:[address], [place], [place] Pcp:Rosa Isela Kelly Subjective: * Chief Complaints: * 1 . 6wk. * Medical History: Objective: * Vitals: Assessment: Plan: * Treatment: * Billing Information: * Visit Code: * Procedure Codes: * Electronic signature of LISE ANDERSON D.P.M. on 11/18/2024 at 01:35 PM EDT Sign off status: Pending * Provider: Sanna Magdaleno DPM Date: 0 11/05/2024 Generated for Eric giordano/Faxing/eTransmitting on: 0 11/18/2024 01:35 PM EDT
--- OUTSIDE RECORDS SUMMARY | 2024-11-18 13:35 | XMS_ITS | Patient Health Record ---
Author Organization [facility] [address] Address [address] [place] [address] Care Team Providers Care Manager Of Case Management Name Role Phone ESTHER DOMINGUEZ Unavailable [phone] Allergies No Known Allergies Reason For Referral [...] Status Risk Notes Problem Morbid obesity (disorder) (278208979) Morbid (severe) obesity due to excess calories (E66.01) Active confirmed Problem Obesity (335064272) Other obesity (E66.8) Active confirmed Problem Adult health examination (243011788) Encounter for general adult medical examination without abnormal findings (Z00.00) Active confirmed Problem Hyperlipidaemia (99249385) Hyperlipidemia, unspecified hyperlipidemia type (E78.5) Active confirmed Problem Body mass index 40+ - morbidly obese (944918420) BMI 40.0-44.9, adult (Z68.41) Active confirmed Problem Obese class II (913433697292708) BMI 35.0-35.9,adult (Z68.35) Active confirmed Problem Diabetes mellitus screening (927748512) Screening for diabetes mellitus (Z13.1) Active confirmed Problem Obese class II (427666063584638) BMI 39.0-39.9,adult (Z68.39) Active confirmed Problem Obese class II (902279980680046) BMI 38.0-38.9,adult (Z68.38) Active confirmed Problem Body mass index 30.00 to 34.99 (854781588132843) BMI 34.0-34.9,adult (Z68.34) Active confirmed Encounters Encounter Location Date Provider Diagnosis [facility] [address] [place] [address] 01/15/2024 ESTHER DOMINGUEZ Plan Of Treatment Pending Test Test Name Order Date LIPID PANEL 12/31/2022 Insulin Level 12/31/2022 Insurance Providers Payer Name Payer Address Payer Phone Subscriber Number Group Number Insured Name Patient Relationship to Insured Coverage Start Date Coverage End Date [facility] [address] [place] [address] [id number] MAMI LANZA Self - patient is the insured Medications Administered Medication Instructions Date of Administration Dosage Notes Semaglutide 12/31/2022 Semaglutide 01/06/2023 0.25 mg LLQ SQ Semaglutide 01/14/2023 0.5 mg LRQ SQ Semaglutide 01/20/2023 0.5 Semaglutide 01/28/2023 0.5 mg LLQ SQ Semaglutide 02/03/2023 0.5 mg Semaglutide 02/17/2023 0.5 mg lot#[id number] 0.5mg Semaglutide 02/24/2023 1 mg Semaglutide 03/03/2023 1 mg Semaglutide 03/10/2023 1 mg Semaglutide 03/17/2023 1.0 mg L tricep SQ Semaglutide 03/23/2023 1 mg Semaglutide 03/31/2023 Semaglutide 04/08/2023 1 Medical (General) History Medical History History ICD Code hyperlipidemia headaches weight change seasonal allergies depression
--- OUTSIDE RECORDS SUMMARY | 2024-11-18 13:35 | XMS_ITS | Patient Health Record ---
Author Organization [facility] Address [address] [address] Care Team Providers Care Slider Assembler Name Role Phone HugoRosa Isela abbasi Primary Care Provider UnavailJUDY Lazar Unavailable [phone] Allergies No Known Allergies Reason For Referral [...] W/U Status Risk Notes Problem Plantar fasciitis (088558358) Plantar fasciitis (M72.2) Active confirmed Vital Signs [...] A Encounters Encounter Location Date Provider Diagnosis [facility] [address] [address] 09/24/2024 JUDY MONICA Pain of right heel M79.671 and Plantar fasciitis M72.2 [facility] [address] [address] 10/25/2024 JUDY MONICA Pain of right heel M79.671 and Plantar fasciitis M72.2 [facility] [address] [address] 10/14/2024 JUDY MONICA Assessments Encounter Date Diagnosis [...] physical therapy, oral anti-inflammatories, steroid injection, night splint/[place] sock, ESWT, and immobilization with CAM boot [...] Name:JUDY ANDERSON, 11/27/2024 02:00:00 PM, [address] [address], [place], [address], Insurance Providers Payer Name Payer Address Payer Phone Subscriber Number Group Number Insured Name Patient Relationship to Insured Coverage Start Date Coverage End Date [facility] [address] [address] [place] [address] [id number] Kanika Aldridge Self - patient is the insured Medications Administered Medication Instructions Date of Administration Dosage Notes dexAMETHasone Sod Phosphate PF 09/24/2024 2 mg Kenalog 09/24/2024 5 mg Medical (General) History Medical History History ICD Code Anxiety Ovarian cyst Obesity (BMI 30.0-39.9)
[2024-12-05 15:03] VITALS: BMI 23.9
--- NOTE | 2024-12-06 13:16 | HO.ANESPROP2 ---
Documented by User: Vane Fernandez NP 12/06/24 13:18 HPI - Anesthesia Eval Consult details Narrative: 34yo F for Upper Endoscopy PMFSH Active Problems Active Problems: All Active Problems Vitamin B1 deficiency (Acute) Iron (Fe) deficiency anemia (Acute) GERD (gastroesophageal reflux disease) (Acute) Anxiety (Acute) Depression (Acute) Morbid obesity (Acute) Past Medical History Medical History GERD (gastroesophageal reflux disease) Anxiety Depression Morbid obesity Family History Family History Mother No problems noted. Father No problems noted. Surgical History Surgical History Hx of wisdom tooth extraction Social History Social History Are you a primary daycare manager to a significant other at home: No Do you presently have visiting nurse or other home services: No Alcohol intake: never Patient Tobacco Use Status: Never used Tobacco Have you been hit, kicked, punched, or otherwise hurt by someone within the past year? If so, by whom?: No Are you DNR?: No Advance Directives: No Advance Directives Information Provided: Yes Patient : No FDLMP: 11/21/24 Poor oral hygiene: No Meds Allergies Allergy/AdvReac Type Severity Reaction Status Date / Time No Known Allergies Allergy Verified 12/10/24 12:34 Home Medications ?Medication ?Instructions ?Recorded ?Confirmed ?Last Taken ?Type bupropion HCl 300 mg 24 hr tablet, 300 mg PO DAILY 11/08/24 12/05/24 Unknown History extended release escitalopram oxalate 20 mg tablet 20 mg PO DAILY 11/08/24 12/05/24 Unknown History lorazepam 0.5 mg tablet 0.5 mg PO BID 11/08/24 12/05/24 Unknown History omeprazole 20 mg capsule,delayed 20 mg PO DAILY 11/08/24 12/05/24 Unknown History release Exam Height,Weight and Vital Signs: Height 5 ft 4 in Weight 63.049 kg Pertinent Lab Results Pertinent Lab Results: Laboratory Tests 11/14/24 08:31 WBC 8.9 Hgb 8.6 L Hct 28.6 L Plt Count 487 H Sodium 140 Potassium 4.4 Chloride 106 Carbon Dioxide 28 BUN 15 Creatinine 0.91 Assessment and Plan Assessment Anesthesia Assessment: Chart Reviewed Documented by User: Kim Santoro MD 12/10/24 12:35 [facility] Past Medical History Medical History GERD (gastroesophageal reflux disease) Anxiety Depression Morbid obesity Family History Family History Mother No problems noted. Father No problems noted. Surgical History Surgical History Hx of wisdom tooth extraction History of Problems with Anesthesia: No Social History Social History Are you a primary daycare manager to a significant other at home: No Do you presently have visiting nurse or other home services: No Alcohol intake: never Patient Tobacco Use Status: Never used Tobacco Have you been hit, kicked, punched, or otherwise hurt by someone within the past year? If so, by whom?: No Are you DNR?: No Advance Directives: No Advance Directives Information Provided: Yes Patient : No FDLMP: 11/21/24 Poor oral hygiene: No Meds Allergies Allergy/AdvReac Type Severity Reaction Status Date / Time No Known Allergies Allergy Verified 12/10/24 12:34 Home Medications ?Medication ?Instructions ?Recorded ?Confirmed ?Last Taken ?Type bupropion HCl 300 mg 24 hr tablet, 300 mg PO DAILY 11/08/24 12/05/24 Unknown History extended release escitalopram oxalate 20 mg tablet 20 mg PO DAILY 11/08/24 12/05/24 Unknown History lorazepam 0.5 mg tablet 0.5 mg PO BID 11/08/24 12/05/24 Unknown History omeprazole 20 mg capsule,delayed 20 mg PO DAILY 11/08/24 12/05/24 Unknown History release Exam Airway Mallampati Class: II TM Dist: >3cm Neck ROM: Full Loose/Missing/Broken Teeth: No Heart: RRR Lungs: CTA Assessment and Plan Assessment Anesthesia Assessment: Anesthesia Plan Discussed Final Anesthetic Review History of Problems with Anesthesia: No NPO: Yes ASA Class: III Final Preanesthetic Review: Meds/Allgs Chart Reviewed, Consent Obtained/Reviewed and Anes Risks/Benef Reviewed Patient Risk: Intermediate Procedure Risk: Intermediate Anesthetic Plan Anesthetic Plan: MAC: Disposition: Standard PACU
[2024-12-10 11:33] LABS: UPreg QC Valid YES
[2024-12-10] MEDS: Lactated Ringers 1,000 ML 80 ML IVCONT (11:35)
[2024-12-10 11:53] VITALS: BP 113/62; PULSE 69; RESP 18; TEMP 36.6; O2SAT 100
[2024-12-10 11:54] VITALS: BMI 39.0
--- NOTE | 2024-12-10 12:19 | MHC.SHP ---
Pre-Procedural Eval Section A - 24 Hr Update-Section A only Date of Service: 12/10/24 The patient has been examined within 24 hours of the surgical procedure. The History & Physical has been completed within 30 days and I have reviewed it.: No Section B - Complete if H&P > 30 days Chief Complaint: Morbid (severe) obesity due to excess calories Details of Present Illness: GERD Relevant Family History (Specify if Yes): No Relevant Social History: None Present Medications: None Medical History: No relevant PMH History of Previous Operations: No relevant previous surgery Allergies: Allergies Allergy/AdvReac Type Severity Reaction Status Date / Time No Known Allergies Allergy Verified 11/11/24 13:04 Review of Systems Sugical H&P ROS: Negative: Constitution, Cardiovascular, Respiratory, Neurological, Psychiatric, Hem-Onc, Allergic/Immunologic, Gastrointestinal, Genitourinary, Musculoskeletal, Integumentary, Endocrine and Eyes/Ears/Nose/Throat Exam Surgical H&P Exam: Normal: HEENT, Normal: Heart, Normal: Lungs, Normal: Extremities, Normal: Abdomen, Normal: Skin and Normal: Neurological Plan Diagnosis/Plan: Unchanged (EGD to assess etiology of GERD. Risks of bleeding and perforation were discussed with the patient and she is in agreement with the plan.) I have reviewed the history and physical and performed a pertinent physical examination on my patient. No changes have occurred unless specified. Time Spent With Patient Time: Total time managing care of this patient today ____ minutes.
--- NOTE | 2024-12-10 12:20 | P.BOP_ITS ---
Brief Operative Note Date of Service: 12/10/24 Pre-op diagnosis: GERD Post-op diagnosis: same (& 1) Reducible diaphragmatic hernia, 2) Gastric polyps) Procedure: PROCEDURE DATE: 12/10/2024 PREOPERATIVE DIAGNOSIS: GERD POSTOPERATIVE DIAGNOSIS: ?Same as above. 1) reducible diaohragmatic hernia, 2) Gastric polyps PROCEDURE: Lcdnadkg-egmgis-bshilfkwlavn with biopsies Surgeon: ?Juan Pablo Mercado M.D.. Ph.D. Grounding Engineer: None ? Anesthesia: IV sedation Estimated blood loss: ?Minimal FINDINGS AND PROCEDURE: ? OPERATIVE INDICATIONS: ?The patient is a 34 year old female known to me who is interested in bariatric surgery. The patient has GERD. Based on this information I recommended an upper endoscopy to evaluate the patient's symptoms. Risks and complications of the surgery were discussed with the patient in advance particularly the possibility of perforation or bleeding that may require surgical intervention. The patient understood the risks and was in agreement with the plan. ? PROCEDURE: After informed consent was obtained by the patient, the patient was ?transferred to the Operating Room and was placed in the supine position.? After successful induction of IV sedation, a mouth block was inserted and the patient was placed in the left lateral decubitus position. An upper endoscopy was performed next, the oropharynx and esophagus appeared within the normal limits. There was s small diaphragmatic hernia. The z-line was smooth. Two biopsies were obtained from the distal esophagus 2-3 cm proximal to the GE junction and two additional biopsies from the GE junction. The stomach was entered and it appeared to be of normal size. There was no gastritis. There were scattered benign-apearing gastric polyps. One of them was biopsied. There was no stricture or ulcer. A biopsy was obtained from the gastric fundus and the antrum. No significant bleeding was noted from any of the biopsy sites. Retroflexion of the scope confirmed the presence of a reducible diaphragmatic hernia with a gap around the scope. The scope was then advanced into the duodenum which appeared to be normal as well. At that point the duodenum ?and the stomach were decompressed and the scope was withdrawn from the patient's mouth. The patient extubated and was transferred in stable condition to the Recovery Room for further care. I was present and performed all steps of the procedure. There were no residents to assist with this case. Juan Pablo Mercado M.D., Ph.D. Surgeon: Dax Mercado MD Anesthesia: MAC Was an Grounding Engineer used for this Procedure?: No Estimated blood loss (mL): 0 IV fluids (mL): 400 Urine output (mL): 0 (No Dyer to record output) Pathology: other (1) antrum x1, 2) fundus x1, 3) GE junction x2, 4) distal esophagus x2, 5) Gastric polyp x1) Condition: stable Disposition: PACU
[2024-12-10 12:54] VITALS: BP 96/54; PULSE 73; RESP 14; TEMP 36.3; O2SAT 93
[2024-12-10 13:09] VITALS: BP 108/65; PULSE 63; RESP 16; TEMP 36.2; O2SAT 99
== END 2024-12-10 13:59 | disposition home or self-care (01) ==
PROVIDERS: Nurse Practitioner; PCP Nurse Practitioner Primary Care; Visit Provider Surgery
PROC: 0DJ08ZZ Inspection of Upper Intestinal Tract, Via Natural or Artificial Opening Endoscopic (ICD-10-PCS; CPT 43235; principal; 2024-12-10 12:40)
DX: K21.9 Gastro-esophageal reflux disease without esophagitis (principal); E66.01 Morbid (severe) obesity due to excess calories; Z68.41 Body mass index [BMI] 40.0-44.9, adult; K31.7 Polyp of stomach and duodenum; K44.9 Diaphragmatic hernia without obstruction or gangrene; F32.A Depression, unspecified; F41.9 Anxiety disorder, unspecified; Z79.899 Other long term (current) drug therapy
CPT/HCPCS: 43239; 81025; 88305; 88313; 88342; J2003; J2704

== ENCOUNTER → 2024-12-10 11:04 | Outpatient (BNV) | payer OTHER, SELFPAY | PROVIDERS: PCP Nurse Practitioner Primary Care; Visit Provider Surgery | DX: K21.9 Gastro-esophageal reflux disease without esophagitis (principal); K44.9 Diaphragmatic hernia without obstruction or gangrene | CPT/HCPCS: 43239 ==

== ENCOUNTER 2024-12-10 14:01 | Outpatient (AMB) | payer OTHER, SELFPAY ==
--- OUTSIDE RECORDS SUMMARY | 2023-07-20 11:30 | XMS_ITS ---
Author Organization [facility] Address [address] [place] [address] Care Team Providers Care Health Physicist Name Role Phone ESTHER DOMINGUEZ Unavailable [phone] Encounters Encounter Location Date Provider Diagnosis [facility] [place] [address] 07/20/2023 ESTHER DOMINGUEZ Plan Of Treatment No Information Progress Notes * ANDRÉS LANZAB:1990 (34 yo F)Acc No.[id number]:07/20/2023 Patient: Janine DOMINGONITINMAMI Provider: Lorin HAYS PA-C :1990 A ge:32 Y S ex:Female Date:07/20/2023 Address:[address] [facility] [facility] Subjective: * Chief Complaints: * * Medical History: Objective: * Vitals: Assessment: Plan: * Treatment: * Images: Billing Information: * Visit Code: * Procedure Codes: * Electronic signature of YUNI DOMINGUEZ PA-C on 12/10/2024 at 06:53 PM EDT Sign off status: Pending * Provider: Lorin HAYS PA-C Date: 0 07/20/2023 Generated for Eric giordano/Blayne/Camille on: 1 06:53 PM EDT
--- OUTSIDE RECORDS SUMMARY | 2024-02-29 04:45 | XMS_ITS ---
Author Organization [facility] Address [address] [place] [address] Care Team Providers Care Tilting Saw Operator Name Role Phone ESTHER DOMINGUEZ Unavailable [phone] Encounters Encounter Location Date Provider Diagnosis [facility] [address] [place] [address] 02/29/2024 ESTHER DOMINGUEZ Plan Of Treatment No Information Progress Notes * ANDRÉS LANZAB:1990 (34 yo F)Acc No.[id number]:02/29/2024 Patient: Janine DOMINGO MAMI Provider: Lorin HAYS PA-C :1990 A ge:33 Y S ex:Female Date:02/29/2024 Address: [address] [facility] Subjective: * Chief Complaints: * * Medical History: Objective: * Vitals: Assessment: Plan: * Treatment: * Images: Billing Information: * Visit Code: * Procedure Codes: * Electronic signature of YUNI DOMINGUEZ PA-C on 12/10/2024 at 06:53 PM EDT Sign off status: Pending * Provider: Lorin HAYS PA-C Date: 0 02/29/2024 Generated for Eric giordano/Blayne/Camille on: 06:53 PM EDT
--- OUTSIDE RECORDS SUMMARY | 2024-11-05 10:00 | XMS_ITS ---
Author Organization [facility] Address [address] [address] Care Team Providers Care Picking Tech Name Role Phone Rosa Isela Kelly Primary Care Provider UnavailJUDY Lazar Unavailable [phone] REASON FOR VISIT 6wk Encounters Encounter Location Date Provider Diagnosis [facility] [address] [address] 11/05/2024 JUDY ANDERSON Plan Of Treatment No Information Progress Notes * Alyssa ALDRIDGESherB:1990 (34 yo F)Acc No.[id number]:11/05/2024 Progress Note Patient: Kanika GOODMNA Provider: Sanna Magdaleno DPM :1990 A ge:34 Y S ex:Female Date:11/05/2024 Phone: Address:[address], [place], [place] Pcp:Rosa Isela Kelly Subjective: * Chief Complaints: * 1 . 6wk. * Medical History: Objective: * Vitals: Assessment: Plan: * Treatment: * Billing Information: * Visit Code: * Procedure Codes: * Electronic signature of LISE ANDERSON D.P.M. on 12/10/2024 at 06:54 PM EDT Sign off status: Pending * Provider: Sanna Magdaleno DPM Date: 0 11/05/2024 Generated for Eric giordano/Blayne/Camille on: 1 06:54 PM EDT
--- OUTSIDE RECORDS SUMMARY | 2024-11-27 10:00 | XMS_ITS ---
Author Organization [facility] Address [address] [address] Care Team Providers Care Hog Ringer Name Role Phone Rosa Isela Kelly Primary Care Provider UnavailJUDY Lazar Unavailable [phone] REASON FOR VISIT 4wk Encounters Encounter Location Date Provider Diagnosis [facility] [address] [address] 11/27/2024 JUDY ANDERSON Plan Of Treatment No Information Progress Notes * Alyssa ALDRIDGESherB:1990 (34 yo F)Acc No.[id number]:11/27/2024 Progress Note Patient: Kanika GOODMAN Provider: Sanna Magdaleno DPJordan :1990 A ge:34 Y S ex:Female Date:11/27/2024 Phone: Address:[address], [address], [place], [place] Pcp:Rosa Isela Kelly Subjective: * Chief Complaints: * 1 . 4wk. * Medical History: Objective: * Vitals: Assessment: Plan: * Treatment: * Billing Information: * Visit Code: * Procedure Codes: * Electronic signature of LISE ANDERSON D.P.M. on 12/10/2024 at 06:53 PM EDT Sign off status: Pending * Provider: Sanna Magdaleno DPM Date: Generated for Eric giordano/Blayne/Camille on: 06:53 PM EDT
--- NOTE | 2024-12-10 14:02 | MHC.WMTHER ---
Intake Intake Visit Reasons: OV BH Intake Allergies No Known Allergies Allergy (Verified 12/10/24 12:34) PFSH Medical History GERD (gastroesophageal reflux disease) Anxiety Depression Morbid obesity Surgical History Hx of wisdom tooth extraction Family History Mother No problems noted. Father No problems noted. Social History Are you a primary customer care coordinator to a significant other at home: No Do you presently have visiting nurse or other home services: No Alcohol intake: never Patient Tobacco Use Status: Never used Tobacco Behavioral Health Assessment Weight Management Therapy Therapy Notes Details PT is a 34 years old female self-referred, who presents for initial visit to start BH assessment as part of surgical weight loss program. Presenting Concerns Referral Source WMP-Provider. Reason for referral Completion of behavioral health assessment as part of process for weight-loss surgery. Precipitating Event Obesity Living Situation Current Living Situation Rent At risk of losing current housing? No Satisfied with current living situation? No Comments Pt lives with her fiance, daughter and mother in law. PT also has 3 cats. Food/Weight/Diet History/Relationship with weight overweight since age 7 History/Relationship with dieting multiple diets GLP-1, wegovy 12/2022-03/2024, gained 20Lbs back in 3 months. Then Zepbound 06/2024-09/2024, lost 20Lbs. Social History Family history and relationship PT is engaged 4 years ago, been together 5 years. Pt has a 11 year old daughter. Pt has a brother, w/ 1 son Mother passed in 2020 Father alive lives in [place]. 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 Developmental history and status None. Currently WNL. Social support Fiandrzej?, his mother. Community support None Scientologist/Spirituality None Cultural/Ethnic information . Legal Involvement and History Current or historical involvement with the legal system? None reported Education Highest grade completed HS Preferred learning style Learn by doing Currently enrolled in educational program? No Interested in further educational program? 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 ) Wants help to find employment? No Meaningful activities witchcraft, candle/oils making. Financial Situation Describe current financial situation Occasional struggle Financial assistance? None Service Service? No Mental Health and Addiction Treatment Current/Past substance abuse? No Comments Alcohol: social. 1 x year Cigarettes/Tobacco: none Cannabis/Edibles: none. Current/Past addictive behavior concerns? No Psychiatric history The patient is not currently in therapy; her last engagement in therapy was brief and occurred around 2008. She has a history of depression, alcohol use, and a suicide attempt at age 17, after which she was mandated to attend treatment. In 2007, she was hospitalized following another suicide attempt. She was diagnosed with depression and anxiety. In 2022, she took a leave of absence from work due to panic attacks. At that time, her current medications were initiated, resulting in significant symptom improvement and allowing her to return to work. She denies any recent safety concerns. Current medications: Bupropion HCL 300 mg, Escitalopram 20 mg, Lorazepam 0.5 mg (1 PRN), all prescribed by her PCP. Medical and Physical Health Summary Additional Medical History not covered in history Headaches. Sexual History concerns None reported Physical exam in the last year? Yes (PCP: at [facility]. ) Pain Screening Current pain? No Pain in the last few months? Yes Comments foot due to plantar fascitis. Medications Is the patient compliant with medications? Yes Does the patient have Yan Guardian in place? Not applicable Does the patient use complimentary health approaches? No Questionnaires PHQ-9 Over the last 2 weeks, how often have you been bothered by any of the following problems? 1. Little interest or pleasure in doing things: more than half the days 2. Feeling down, depressed, or hopeless: several days 3. Trouble falling or staying asleep, or sleeping too much: nearly every day 4. Feeling tired or having little energy: nearly every day 5. Poor appetite or overeating: nearly every day 6. Feeling bad about yourself - or that you are a failure or have let yourself or your family down: several days 7. Trouble concentrating on things, such as reading the newspaper or watching television: several days 8. Moving or speaking so slowly that other people could have noticed. Or the opposite - being so fidgety or restless that you have been moving around a lot more than usual: not at all 9. Thoughts that you would be better off or of hurting yourself in some way: not at all Total score: 14 Depression Screening Interpretation: Positive (From new Pt pack. New one will be administered at next keila.) Depression Screening Done: Yes Source: Developed by Drs. Song Sutherland, Montserrat Madden, Saul Everett and colleagues, with an educational isaac from [employer]. Binge Eating Scale Group 1 A. I don't feel self-conscious about my wt. or body size when I'm with others. B. I feel concerned about how I look to others, but it normally does not make me fell disappointed with myself C. I do get self-conscious about my appearance and wt. which makes me feel disappointed in myself. D. I feel very self-conscious about my wt. and frequently I feel intense shame and disgust for myself. I try to avoid social contacts because of my self-consciousness. Response Group 1: C Group 2 A. I don't have any difficulty eating slowly in the proper manner. B. Although I seem to gobble down foods, I don't end up feeling stuffed because of eating to much. C. At times, I tend to eat quickly and then, I feel uncomfortably full afterwards. D. I have the habit of bolting down my food, without really chewing it. When this happens I usually feel uncomfortably stuffed because I've eaten to much. Response Group 2: C Group 3 A. I feel capable to control my eating urges when I want to. B. I feel like I have failed to control my eating more than the average person. C. I feel utterly helpless when it comes to feeling in control of my eating urges. D. Because I feel so helpless about controlling my eating I have become very desperate about trying to get control. Response Group 3: B Group 4 A. I don't have the habit of eating when I'm bored. B. I sometimes eat when I'm bored, but often I'm able to get busy and get my mind off food. C. I have a regular habit of eating when I'm bored, but occasionally, I can use some other activity to get my mind off eating. D. I have a strong habit of eating when I'm bored. Nothing seems to help me breath the habit. Response Group 4: D Group 5 A. I'm usually physically hungry when I eat something. B. Occasionally, I eat something on impulse even though I really am not hungry. C. I have the regular habit of eating foods, that I might not really enjoy, to satisfy a hungry feeling even though physically, I don't need the food. D. Although I'm not physically hungry, I get a hungry feeling in my mouth that only seems to be satisfied when I eat a food, like sandwich, that fills my mouth. Sometimes, when I eat the food to satisfy my mouth hunger, I then spit the food out so I won't gain weight. Response Group 5: B Group 6 A. I don't feel any guilt or self-hate after I overeat. B. After I overeat, occasionally I feel guilt or self-hate. C. Almost all the time I experience strong guilt or self-hate after I overeat. Response Group 6: C Group 7 A. I don't lose total control of my eating when dieting even after periods when I overeat. B. Sometimes when I eat a forbidden food on a diet, I feel like I blew it and eat even more. C. Frequently, I have the habit of saying to myself, I've blown it now, why not go all the way, when I overeat on a diet. When that happens I eat more. D. I have a regular habit of starting a strict diets for myself but I break the diets by going on an eating binge. My life seems to be either a feast or famine. Response Group 7: D Group 8 A. I rarely eat so much food that I feel uncomfortably stuffed afterwards. B. Usually about once a month, I each such a quantity of food, I end up feeling very stuffed. C. I have regular periods during the month when I eat large amounts of food, either at mealtime or at snacks. D. I eat so much food that I regularly feel quite uncomfortable after eating and sometimes a bit nauseous. Response Group 8: D Group 10 A. I usually am able to stop eating when I want to. I know when enough is enough. B. Every so often, I experience a compulsion to eat which I can't seem to control. C. Frequently, I experience strong urges to eat which I seem unable to control, but at other times I can control my eating urges. D. I feel incapable of controlling urges to eat. I have a fear of not being able to stop eating voluntarily. Response Group 10: C Group 11 A. I don't have any problem stopping eating when I feel full. B. I usually can stop eating when I feel full but occasionally overeat leaving me feeling uncomfortably stuffed. C. I have a problem stopping eating once I start and usually I feel uncomfortably stuffed after I eat a meal. D. Because I have a problem not being able to stop eating when I want, I sometimes have to induce vomiting to relieve my stuffed feeling. Response Group 11: B Group 12 A. I seem to eat just as much when I'm with others, Family social gatherings as when I'm by myself. B. Sometimes, when I'm with other persons, I don't eat as much as I want to eat because I'm self-conscious about my eating. C. Frequently, I eat only a small amount of food when others are present, because I'm very embarrassed about my eating. D. I feel so ashamed about overeating that I pick times to overeat when I know no one will see me. I feel like a closet eater. Response Group 12: A Group 13 A. I eat three meals a day with only an occasional between meal snack. B. I eat 3 meals a day, but I also normally snack between meals. C. When I am snacking heavily, I get in the habit of skipping regular meals. D. There are regular periods when I seem to be continually eating, with no planned meals. Response Group 13: D Group 14 A. I don't think much about trying to control unwanted eating urges. B. At least some of the time, I feel my thoughts are pre-occupied with trying to control my eating urges. C. I feel that frequently I spend much time thinking about how much I ate or about trying not to eat anymore. D. It seems to me that most of my waking hours are pre-occupied by thoughts about eating or not eating. I feel like I'm constantly struggling not to eat. Response Group 14: C Group 15 A. I don't think about food a great deal. B. I have strong craving for food but they last only for brief periods of time. C. I have days when I can't seem to think about anything else but food. D. Most of my days seem to be pre-occupied with thoughts about food. I feel like I live to eat. Response Group 15: B Group 16 A. I usually know whether or not I'm physically hungry. I take the right portion of food to satisfy me. B. Occasionally, I feel uncertain about knowing whether or not I'm physically hungry. A these times it's hard to know how much food I should take to satisfy me. C. Even though I might know how many calories I should eat, I don't have any idea what is a normal amount of food for me. Response Group 16: B Binge Eating Score: 27 Score less than 17 Minimal Risk Score between 18-26 Moderate Risk Score between 27-46 High Risk Assessment & Plan Assessment & Plan (1) Panic anxiety syndrome: Code(s): F41.0 - Panic disorder [episodic paroxysmal anxiety] (2) Anxiety disorder: Code(s): F41.9 - Anxiety disorder, unspecified Qualifiers: Anxiety disorder type: unspecified anxiety disorder Qualified Code(s): F41.9 - Anxiety disorder, unspecified (3) Pre-bariatric surgery psychological evaluation: Code(s): Z71.89 - Other specified counseling Plan The patient was not cleared today as the assessment was not completed. The patient will return in 2-4 weeks to continue the evaluation. Next appointment:12/31/24 at 2pm, Remote. Coding Level of Care Code New Pt Psy Diag Eval (70482) Patient Type New Diagnoses Panic anxiety syndrome F41.0 Anxiety disorder, unspecified type F41.9 Anxiety disorder type: unspecified anxiety disorder Pre-bariatric surgery psychological evaluation Z71.89 Time Spent (min) 60
--- OUTSIDE RECORDS SUMMARY | 2024-12-10 18:53 | XMS_ITS | Patient Health Record ---
Author Organization [facility] [address] Address [address] [place] [address] Care Team Providers Care Insurance Specialist Name Role Phone ESTHER DOMINGUEZ Unavailable [phone] Allergies No Known Allergies Reason For Referral [...] Status Risk Notes Problem Morbid obesity (disorder) (623636092) Morbid (severe) obesity due to excess calories (E66.01) Active confirmed Problem Obesity (827403984) Other obesity (E66.8) Active confirmed Problem Adult health examination (526353108) Encounter for general adult medical examination without abnormal findings (Z00.00) Active confirmed Problem Hyperlipidaemia (95046016) Hyperlipidemia, unspecified hyperlipidemia type (E78.5) Active confirmed Problem Body mass index 40+ - morbidly obese (313214663) BMI 40.0-44.9, adult (Z68.41) Active confirmed Problem Obese class II (737176148650223) BMI 35.0-35.9,adult (Z68.35) Active confirmed Problem Diabetes mellitus screening (525942043) Screening for diabetes mellitus (Z13.1) Active confirmed Problem Obese class II (270327695463197) BMI 39.0-39.9,adult (Z68.39) Active confirmed Problem Obese class II (271896328767384) BMI 38.0-38.9,adult (Z68.38) Active confirmed Problem Body mass index 30.00 to 34.99 (741806078055418) BMI 34.0-34.9,adult (Z68.34) Active confirmed Encounters Encounter Location Date Provider Diagnosis [facility] [address] [place] [address] 01/15/2024 ESTHER DOMINGUEZ Plan Of Treatment Pending Test Test Name Order Date LIPID PANEL 12/31/2022 Insulin Level 12/31/2022 Insurance Providers Payer Name Payer Address Payer Phone Subscriber Number Group Number Insured Name Patient Relationship to Insured Coverage Start Date Coverage End Date [facility] [address] [place] [address] [id number] MAMI LANZA Self - patient is the insured Medications Administered Medication Instructions Date of Administration Dosage Notes Semaglutide 12/31/2022 Semaglutide 01/06/2023 0.25 mg LLQ SQ Semaglutide 01/14/2023 0.5 mg LRQ SQ Semaglutide 01/20/2023 0.5 Semaglutide 01/28/2023 0.5 mg LLQ SQ Semaglutide 02/03/2023 0.5 mg Semaglutide 02/17/2023 0.5 mg lot#[id number] 0.5mg Semaglutide 02/24/2023 1 mg Semaglutide 03/03/2023 1 mg Semaglutide 03/10/2023 1 mg Semaglutide 03/17/2023 1.0 mg L tricep SQ Semaglutide 03/23/2023 1 mg Semaglutide 03/31/2023 Semaglutide 04/08/2023 1 Medical (General) History Medical History History ICD Code hyperlipidemia headaches weight change seasonal allergies depression
--- OUTSIDE RECORDS SUMMARY | 2024-12-10 18:54 | XMS_ITS | Patient Health Record ---
Author Organization [facility] Address [address] [address] Care Team Providers Care Rn Gyn Name Role Phone SacatonRosa Isela abbasi Primary Care Provider UnavailJUDY Lazar Unavailable [phone] Allergies No Known Allergies Reason For Referral [...] W/U Status Risk Notes Problem Plantar fasciitis (437756449) Plantar fasciitis (M72.2) Active confirmed Vital Signs [...] A Encounters Encounter Location Date Provider Diagnosis [facility] [address] [address] 09/24/2024 JUDY MONICA Pain of right heel M79.671 and Plantar fasciitis M72.2 [facility] [address] [address] 10/25/2024 JUDY MONICA Pain of right heel M79.671 and Plantar fasciitis M72.2 [facility] [address] [address] 10/14/2024 JUDY MONICA Assessments Encounter Date Diagnosis [...] physical therapy, oral anti-inflammatories, steroid injection, night splint/Roundhill sock, ESWT, and immobilization with CAM boot [...] 2024 WALKING BOOT PNEUMATIC AND/OR VAC 2024 Insurance Providers Payer Name Payer Address Payer Phone Subscriber Number Group Number Insured Name Patient Relationship to Insured Coverage Start Date Coverage End Date [facility] [address] [address] [place] [address] [id number] Kanika Aldridge Self - patient is the insured Medications Administered Medication Instructions Date of Administration Dosage Notes dexAMETHasone Sod Phosphate PF 09/24/2024 2 mg Kenalog 09/24/2024 5 mg Medical (General) History Medical History History ICD Code Anxiety Ovarian cyst Obesity (BMI 30.0-39.9)
== END 2024-12-10 15:26 | disposition home or self-care (01) ==
LOC: HO.HBST 14:02
PROVIDERS: PCP Nurse Practitioner Primary Care; Visit Provider Counselor Mental Health
DX: F41.0 Panic disorder [episodic paroxysmal anxiety] (principal); F41.9 Anxiety disorder, unspecified; Z71.89 Other specified counseling
CPT/HCPCS: 90791

== ENCOUNTER 2024-12-20 15:11 | Outpatient (AMB) | payer OTHER, SELFPAY ==
--- OUTSIDE RECORDS SUMMARY | 2023-07-20 11:30 | XMS_ITS ---
Author Organization [facility] [address] Address [address] [place] [address] Care Team Providers Care Percher Name Role Phone ESTHER DOMINGUEZ Unavailable [phone] Encounters Encounter Location Date Provider Diagnosis [facility] [place] [address] 07/20/2023 ESTHER DOMINUGEZ Plan Of Treatment No Information Progress Notes * ANDRÉS LANZAB:1990 (34 yo F)Acc No.[id number]:07/20/2023 Patient: Janine DOMINGONITINMAMI Provider: Lorin HAYS PA-C :1990 A ge:32 Y S ex:Female Date:07/20/2023 Address:[address] [facility] [facility] Subjective: * Chief Complaints: * * Medical History: Objective: * Vitals: Assessment: Plan: * Treatment: * Images: Billing Information: * Visit Code: * Procedure Codes: * Electronic signature of YUNI DOMINGUEZ PA-C on 12/20/2024 at 03:25 PM EDT Sign off status: Pending * Provider: Lorin HAYS PA-C Date: 0 07/20/2023 Generated for Eric giordano/Blayne/Camille on: 1 03:25 PM EDT
--- OUTSIDE RECORDS SUMMARY | 2024-02-29 04:45 | XMS_ITS ---
Author Organization [facility] Address [address] [place] [address] Care Team Providers Care Account Collector Name Role Phone ESTHER DOMINGUEZ Unavailable [phone] Encounters Encounter Location Date Provider Diagnosis [facility] [place] [address] 02/29/2024 ESTHER DOMINGUEZ Plan Of Treatment No Information Progress Notes * ANDRÉS LANZAB:1990 (34 yo F)Acc No.[id number]:02/29/2024 Patient: Janine DOMINGO MAMI Provider: Lorin HAYS PA-C :1990 A ge:33 Y S ex:Female Date:02/29/2024 Address:[address] [facility] [facility] Subjective: * Chief Complaints: * * Medical History: Objective: * Vitals: Assessment: Plan: * Treatment: * Images: Billing Information: * Visit Code: * Procedure Codes: * Electronic signature of YUNI DOMINGUEZ PA-C on 12/20/2024 at 03:25 PM EDT Sign off status: Pending * Provider: Lorin HAYS PA-C Date: 0 02/29/2024 Generated for Eric giordano/Blayne/Camille on: 03:25 PM EDT
--- OUTSIDE RECORDS SUMMARY | 2024-11-05 10:00 | XMS_ITS ---
Author Organization [facility] Address [address] [address] Care Team Providers Care Filter Tank Tender Name Role Phone Rosa Isela Kelly Primary Care Provider UnavailJUDY Lazar Unavailable [phone] REASON FOR VISIT 6wk Encounters Encounter Location Date Provider Diagnosis [facility] [address] [address] 11/05/2024 JUDY ANDERSON Plan Of Treatment No Information Progress Notes * Alyssa ALDRIDGESherB:1990 (34 yo F)Acc No.[id number]:11/05/2024 Progress Note Patient: Kanika GOODMAN Provider: Sanna Magdaleno DPM :1990 A ge:34 Y S ex:Female Date:11/05/2024 Phone: Address:[address], [place], [place] Pcp:Rosa Isela Kelly Subjective: * Chief Complaints: * 1 . 6wk. * Medical History: Objective: * Vitals: Assessment: Plan: * Treatment: * Billing Information: * Visit Code: * Procedure Codes: * Electronic signature of LISE ANDERSON D.P.M. on 12/20/2024 at 03:26 PM EDT Sign off status: Pending * Provider: Sanna Magdaleno DPM Date: 0 11/05/2024 Generated for Eric giordano/Blayne/Camille on: 1 03:26 PM EDT
--- OUTSIDE RECORDS SUMMARY | 2024-11-27 10:00 | XMS_ITS ---
Author Organization [facility] Address [address] [address] Care Team Providers Care Keysmith Name Role Phone Rosa Isela Kelly Primary Care Provider UnavailJUDY Lazar Unavailable [phone] REASON FOR VISIT 4wk Encounters Encounter Location Date Provider Diagnosis [facility] [address] [address] 11/27/2024 JUDY ANDERSON Plan Of Treatment No Information Progress Notes * Alyssa ALDRIDGESherB:1990 (34 yo F)Acc No.[id number]:11/27/2024 Progress Note Patient: Kanika GOODMAN Provider: Sanna Magdaleno DPJordan :1990 A ge:34 Y S ex:Female Date:11/27/2024 Phone: Address:[address], [address], [place], [place] Pcp:Rosa Isela Kelly Subjective: * Chief Complaints: * 1 . 4wk. * Medical History: Objective: * Vitals: Assessment: Plan: * Treatment: * Billing Information: * Visit Code: * Procedure Codes: * Electronic signature of LISE ANDERSON D.P.M. on 12/20/2024 at 03:25 PM EDT Sign off status: Pending * Provider: Sanna Magdaleno DPM Date: Generated for Eric giordano/Blayne/Camille on: 03:25 PM EDT
--- NOTE | 2024-12-20 15:10 | A.OFFWM_ITS ---
Intake Intake Visit Reasons: VIDEO BH Intake Part 2 (F/U) Allergies No Known Allergies Allergy (Verified 12/10/24 12:34) PFSH Medical History GERD (gastroesophageal reflux disease) Anxiety Depression Morbid obesity Surgical History Hx of wisdom tooth extraction Family History Mother No problems noted. Father No problems noted. Social History Are you a primary college and career counselor to a significant other at home: No Do you presently have visiting nurse or other home services: No Alcohol intake: never Patient Tobacco Use Status: Never used Tobacco Behavioral Health Assessment Weight Management Therapy Therapy Notes Details Patient is a 34-year-old female, self-referred, presenting for her second visit to complete the behavioral health assessment as part of the surgical weight loss program. During this session, she was provided with techniques for mindful and slow eating, as well as strategies to enhance readiness in preparation for her upcoming weight-loss surgery. Presenting Concerns Referral Source WMP-Provider. Reason for referral Completion of behavioral health assessment as part of p rocess for weight-loss surgery. Precipitating Event Obesity Living Situation Current Living Situation Rent At risk of losing current housing? No Satisfied with current living situation? No Comments Pt lives with her fiance, daughter and mother in law. PT also has 3 cats. Food/Weight/Diet Expectations of change The patient began the program at 239 lbs, with an initial goal of losing 10% of her body weight (approximately 24 lbs) prior to surgery. Her target pre-operative weight is 215 lbs. As of 12/17/2024, her most recent recorded weight is 226 lbs, reflecting steady progress toward her surgical weight loss goal. PT is implementing the following: Current meal plan: 2 protein shakes, 2 protein bars, and one meal per day. Exercise plan: treadmill. Scale: yes Communication with provider: yes, Tuesdays. History/Relationship with food Patient reports a tendency to skip meals during the day, resulting in increased hunger and snacking while preparing dinner in the evening. Since starting the program, she has become more aware of previous patterns of overeating, particularly related to eating too quickly. PT denies any hx os stress/emotional eating. Example of meals before starting the program: Breakfast: skips Lunch: 12pm (Fairlife or Nutri or food) or skip Dinner: 6pm (rice, potatoes, or pasta, protein) Snacks: 4 pm and ater dinner(chips, or candy) Beverages: Coffee: none, Tea: none, Soda: none, Juice: none, ETOH: none History/Relationship with weight The patient has been overweight since age 7 and weighed over 180 lbs in high school. Over the past 10 years, her lowest weig ht was 177 lbs during a period of depression with poor nutrition, and her highest was 264 lbs. History/Relationship with dieting multiple diets GLP-1, wegovy 12/2022-03/2024, gained 20Lbs back in 3 months. Then Zepbound 06/2024-09/2024, lost 20Lbs. Binge Eating Do you frequently eat large amounts of food in short periods of time, not feeling physically hungry? No Do you feel out of control when you eat a large amount of food in a short period of time? No Do you eat large amounts of food rapidly and typically alone? No Night Eating Do you wake up at least once during the night to eat? No If you wake up in the night, do you find that it is necessary to eat something in order to fall back asleep? No Do you have little or no appetite in the morning and feel very hungry in the evening, often overeating between dinner and when you go to bed? Yes Social History Family history and relationship PT is engaged 4 years ago, been together 5 years. Pt has a 11 year old daughter. Pt has a brother, w/ 1 son Mother passed in 2020 Father alive lives in [place]. 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 Developmental history and status None. Currently WNL. Social support Fianc?, his mother. Community support None Caodaism/Spirituality None Cultural/Ethnic information . Legal Involvement and History Current or historical involvement with the legal system? None reported Education Highest grade completed HS Preferred learning style Learn by doing Currently enrolled in educational program? No Interested in further educational program? 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 ) Wants help to find employment? No Meaningful activities witchcraft, candle/oils making. Financial Situation Describe current financial situation Occasional struggle Financial assistance? None Service Service? No Mental Health and Addiction Treatment Current/Past substance abuse? No Comments Alcohol: social. 1 x year Cigarettes/Tobacco: none Cannabis/Edibles: none. Current/Past addictive behavior concerns? No Psychiatric history The patient is not currently in therapy; her last engagement in therapy was brief and occurred around 2008. She has a history of depression, alcohol use, and a suicide attempt at age 17, after which she was mandated to attend treatment. In 2007, she was hospitalized following another suicide attempt. She was diagnosed with depression and anxiety. In 2022, she took a leave of absence from work due to panic attacks. At that time, her current medications were initiated, resulting in significant symptom improvement and allowing her to return to work. She denies any recent safety concerns. Current medications: Bupropion HCL 300 mg, Escitalopram 20 mg, Lorazepam 0.5 mg (1 PRN), all prescribed by her PCP. PT reports she is stable with this regimen. Medical and Physical Health Summary Additional Medical History not covered in history Headaches. Sexual History concerns None reported Physical exam in the last year? Yes (PCP: at [facility]. ) Pain Screening Current pain? No Pain in the last few months? Yes Comments foot due to plantar fascitis. Medications Is the patient compliant with medications? Yes Does the patient have Yan Guardian in place? Not applicable Does the patient use complimentary health approaches? No Trauma/Abuse History History of trauma? Yes Questionnaires PHQ-9 Over the last 2 weeks, how often have you been bothered by any of the following problems? 1. Little interest or pleasure in doing things: not at all 2. Feeling down, depressed, or hopeless: not at all 3. Trouble falling or staying asleep, or sleeping too much: several days (falling) 4. Feeling tired or having little energy: not at all 5. Poor appetite or overeating: several days 6. Feeling bad about yourself - or that you are a failure or have let yourself or your family down: not at all 7. Trouble concentrating on things, such as reading the newspaper or watching television: not at all 8. Moving or speaking so slowly that other people could have noticed. Or the opposite - being so fidgety or restless that you have been moving around a lot more than usual: not at all 9. Thoughts that you would be better off or of hurting yourself in some way: not at all Total score: 2 Depression Screening Interpretation: Negative Depression Screening Done: Yes 17342 - PHQ-9 Billing: Yes Source: Developed by Drs. Song Sutherland, Montserrat Madden, Saul Everett and colleagues, with an educational isaac from [employer]. Binge Eating Scale Group 1 A. I don't feel self-conscious about my wt. or body size when I'm with others. B. I feel concerned about how I look to others, but it normally does not make me fell disappointed with myself C. I do get self-conscious about my appearance and wt. which makes me feel disappointed in myself. D. I feel very self-conscious about my wt. and frequently I feel intense shame and disgust for myself. I try to avoid social contacts because of my self- consciousness. Response Group 1: C Group 2 A. I don't have any difficulty eating slowly in the proper manner. B. Although I seem to gobble down foods, I don't end up feeling stuffed because of eating to much. C. At times, I tend to eat quickly and then, I feel uncomfortably full afterwards. D. I have the habit of bolting down my food, without really chewing it. When this happens I usually feel uncomfortably stuffed because I've eaten to much. Response Group 2: C Group 3 A. I feel capable to control my eating urges when I want to. B. I feel like I have failed to control my eating more than the average person. C. I feel utterly helpless when it comes to feeling in control of my eating urges. D. Because I feel so helpless about controlling my eating I have become very desperate about trying to get control. Response Group 3: B Group 4 A. I don't have the habit of eating when I'm bored. B. I sometimes eat when I'm bored, but often I'm able to get busy and get my mind off food. C. I have a regular habit of eating when I'm bored, but occasionally, I can use some other activity to get my mind off eating. D. I have a strong habit of eating when I'm bored. Nothing seems to help me cinthia ath the habit. Response Group 4: D Group 5 A. I'm usually physically hungry when I eat something. B. Occasionally, I eat something on impulse even though I really am not hungry. C. I have the regular habit of eating foods, that I might not really enjoy, to satisfy a hungry feeling even though physically, I don't need the food. D. Although I'm not physically hungry, I get a hungry feeling in my mouth that only seems to be satisfied when I eat a food, like sandwich, that fills my mouth. Sometimes, when I eat the food to satisfy my mouth hunger, I then spit the food out so I won't gain weight. Response Group 5: B Group 6 A. I don't feel any guilt or self-hate after I overeat. B. After I overeat, occasionally I feel guilt or self-hate. C. Almost all the time I experience strong guilt or self-hate after I overeat. Response Group 6: C Group 7 A. I don't lose total control of my eating when dieting even after periods when I overeat. B. Sometimes when I eat a forbidden food on a diet, I feel like I blew it and eat even more. C. Frequently, I have the habit of saying to myself, I've blown it now, why not go all the way, when I overeat on a diet. When that happens I eat more. D. I have a regular habit of starting a strict diets for myself but I break the diets by going on an eating binge. My life seems to be either a feast or famine. Response Group 7: D Group 8 A. I rarely eat so much food that I feel uncomfortably stuffed afterwards. B. Usually about once a month, I each such a quantity of food, I end up feeling very stuffed. C. I have regular periods during the month when I eat large amounts of food, either at mealtime or at snacks. D. I eat so much food that I regularly feel quite uncomfortable after eating and sometimes a bit nauseous. Response Group 8: D Group 10 A. I usually am able to stop eating when I want to. I know when enough is enough. B. Every so often, I experience a compulsion to eat which I can't seem to control. C. Frequently, I experience strong urges to eat which I seem unable to control, but at other times I can control my eating urges. D. I feel incapable of controlling urges to eat. I have a fear of not being able to stop eating voluntarily. Response Group 10: C Group 11 A. I don't have any problem stopping eating when I feel full. B. I usually can stop eating when I feel full but occasionally overeat leaving me feeling uncomfortably stuffed. C. I have a problem stopping eating once I start and usually I feel uncomfortably stuffed after I eat a meal. D. Because I have a problem not being able to stop eating when I want, I sometimes have to induce vomiting to relieve my stuffed feeling. Response Group 11: B Group 12 A. I seem to eat just as much when I'm with others, Family social gatherings as when I'm by myself. B. Sometimes, when I'm with other persons, I don't eat as much as I want to eat because I'm self-conscious about my eating. C. Frequently, I eat only a small amount of food when others are present, because I'm very embarrassed about my eating. D. I feel so ashamed about overeating that I pick times to overeat when I know no one will see me. I feel like a closet eater. Response Group 12: A Group 13 A. I eat three meals a day with only an occasional between meal snack. B. I eat 3 meals a day, but I also normally snack between meals. C. When I am snacking heavily, I get in the habit of skipping regular meals. D. There are regular periods when I seem to be continually eating, with no planned meals. Response Group 13: D Group 14 A. I don't think much about trying to control unwanted eating urges. B. At least some of the time, I feel my thoughts are pre-occupied with trying to control my eating urges. C. I feel that frequently I spend much time thinking about how much I ate or about trying not to eat anymore. D. It seems to me that most of my waking hours are pre-occupied by thoughts about eating or not eating. I feel like I'm constantly struggling not to eat. Response Group 14: C Group 15 A. I don't think about food a great deal. B. I have strong craving for food but they last only for brief periods of time. C. I have days when I can't seem to think about anything else but food. D. Most of my days seem to be pre-occupied with thoughts about food. I feel like I live to eat. Response Group 15: B Group 16 A. I usually know whether or not I'm physically hungry. I take the right portion of food to satisfy me. B. Occasionally, I feel uncertain about knowing whether or not I'm physically hungry. A these times it's hard to know how much food I should take to satisfy me. C. Even though I might know how many calories I should eat, I don't have any idea what is a normal amount of food for me. Response Group 16: B Binge Eating Score: 27 Score less than 17 Minimal Risk Score between 18-26 Moderate Risk Score between 27-46 High Risk Assessment & Plan Assessment & Plan (1) Panic anxiety syndrome: Code(s): F41.0 - Panic disorder [episodic paroxysmal anxiety] (2) Anxiety disorder: Code(s): F41.9 - Anxiety disorder, unspecified (3) Pre-bariatric surgery psychological evaluation: Code(s): Z71.89 - Other specified counseling Plan Following a comprehensive behavioral health assessment?including review of the Binge Eating Scale, PHQ-9, mental status evaluation, and patient self- report?there are currently no behavioral health contraindications to proceeding with bariatric surgery. The patient demonstrates appropriate insight, motivati on, and psychological readiness for the procedure. No active psychiatric symptoms or maladaptive eating behaviors were identified that would impede surgical outcomes at this time. The patient is cleared from a behavioral health perspective to proceed with bariatric surgery and documentation can be submitted for insurance approval as indicated. PT will return for a follow-up behavioral health visit 1?4 weeks postoperatively to monitor psychological adjustment, reinforce coping strategies, and screen for any emerging concerns such as mood changes, adjustment difficulties, or disordered eating patterns. Additional behavioral health support will be provided as needed based on postoperative assessment. Next keila: 1-4 weeks PO. Telehealth Telehealth Telehealth Platform: [employer] Location of provider rendering services: other (Home office. [place], [place]) Location of patient: address on file Patient Identification confirmed using: Name, : Yes Telehealth method: video Patient verbally consented to treatment: Yes Patient verbally consented to billing insurance company: Yes Patient informed of any privacy concerns related to visit: Yes Minutes spent on Phone/Video with Pt.: 45 [place] [address] Tele Psytx 45 mins Patient Type Established Diagnoses Panic anxiety syndrome F41.0 Anxiety disorder F41.9 Pre-bariatric surgery psychological evaluation Z71.89 Additional Codes PHQ-9 - 34627 - PHQ-9 Billing: Yes ([id number]) Time Spent (min) 45
--- OUTSIDE RECORDS SUMMARY | 2024-12-20 15:25 | XMS_ITS | Patient Health Record ---
Author Organization [facility] [address] Address [address] [place] [address] Care Team Providers Care Senior Analytical Chemist Name Role Phone ESTHER DOMINGUEZ Unavailable [phone] Allergies No Known Allergies Reason For Referral [...] Status Risk Notes Problem Morbid obesity (disorder) (406184509) Morbid (severe) obesity due to excess calories (E66.01) Active confirmed Problem Obesity (845324863) Other obesity (E66.8) Active confirmed Problem Adult health examination (553626589) Encounter for general adult medical examination without abnormal findings (Z00.00) Active confirmed Problem Hyperlipidaemia (80091717) Hyperlipidemia, unspecified hyperlipidemia type (E78.5) Active confirmed Problem Body mass index 40+ - morbidly obese (317663145) BMI 40.0-44.9, adult (Z68.41) Active confirmed Problem Obese class II (661060423059921) BMI 35.0-35.9,adult (Z68.35) Active confirmed Problem Diabetes mellitus screening (604462486) Screening for diabetes mellitus (Z13.1) Active confirmed Problem Obese class II (935013612736375) BMI 39.0-39.9,adult (Z68.39) Active confirmed Problem Obese class II (019054966204406) BMI 38.0-38.9,adult (Z68.38) Active confirmed Problem Body mass index 30.00 to 34.99 (798454623360100) BMI 34.0-34.9,adult (Z68.34) Active confirmed Encounters Encounter Location Date Provider Diagnosis [facility] [address] [place] [address] 01/15/2024 ESTHER DOMINGUEZ Plan Of Treatment Pending Test Test Name Order Date LIPID PANEL 12/31/2022 Insulin Level 12/31/2022 Insurance Providers Payer Name Payer Address Payer Phone Subscriber Number Group Number Insured Name Patient Relationship to Insured Coverage Start Date Coverage End Date [facility] [address] [place] [address] [id number] MAMI LANZA Self - patient is the insured Medications Administered Medication Instructions Date of Administration Dosage Notes Semaglutide 12/31/2022 Semaglutide 01/06/2023 0.25 mg LLQ SQ Semaglutide 01/14/2023 0.5 mg LRQ SQ Semaglutide 01/20/2023 0.5 Semaglutide 01/28/2023 0.5 mg LLQ SQ Semaglutide 02/03/2023 0.5 mg Semaglutide 02/17/2023 0.5 mg lot#[id number] 0.5mg Semaglutide 02/24/2023 1 mg Semaglutide 03/03/2023 1 mg Semaglutide 03/10/2023 1 mg Semaglutide 03/17/2023 1.0 mg L tricep SQ Semaglutide 03/23/2023 1 mg Semaglutide 03/31/2023 Semaglutide 04/08/2023 1 Medical (General) History Medical History History ICD Code hyperlipidemia headaches weight change seasonal allergies depression
--- OUTSIDE RECORDS SUMMARY | 2024-12-20 15:26 | XMS_ITS | Patient Health Record ---
Author Organization [facility] Address [address] [address] Care Team Providers Care Service Operator Name Role Phone StrawberryRosa Isela abbasi Primary Care Provider UnavailJUDY Lazar Unavailable [phone] Allergies No Known Allergies Reason For Referral [...] W/U Status Risk Notes Problem Plantar fasciitis (977576159) Plantar fasciitis (M72.2) Active confirmed Vital Signs [...] A Encounters Encounter Location Date Provider Diagnosis [facility] [address] [address] 09/24/2024 JUDY MONICA Pain of right heel M79.671 and Plantar fasciitis M72.2 [facility] [address] [address] 10/25/2024 JUDY MONICA Pain of right heel M79.671 and Plantar fasciitis M72.2 [facility] [address] [address] 10/14/2024 JUDY MONICA Assessments Encounter Date Diagnosis [...] physical therapy, oral anti-inflammatories, steroid injection, night splint/[place] sock, ESWT, and immobilization with CAM boot [...] Insured Coverage Start Date Coverage End Date [facility] [address] [address] [place] [address] [id number] Kanika Aldridge Self - patient is the insured Medications Administered Medication Instructions Date of Administration Dosage Notes dexAMETHasone Sod Phosphate PF 09/24/2024 2 mg Kenalog 09/24/2024 5 mg Medical (General) History Medical History History ICD Code Anxiety Ovarian cyst Obesity (BMI 30.0-39.9)
== END 2024-12-23 09:44 | disposition home or self-care (01) ==
LOC: HO.HBST 15:11
PROVIDERS: PCP Nurse Practitioner Primary Care; Visit Provider Counselor Mental Health
DX: F41.0 Panic disorder [episodic paroxysmal anxiety] (principal); F41.9 Anxiety disorder, unspecified; Z71.89 Other specified counseling
CPT/HCPCS: 90834

== ENCOUNTER 2025-01-03 08:21 | Outpatient (AMB) | payer OTHER, SELFPAY ==
--- OUTSIDE RECORDS SUMMARY | 2023-07-20 10:30 | XMS_ITS ---
Author Organization [facility] [address] Address [address] [place] [address] Care Team Providers Care Drainage Inspector Name Role Phone ESTHER DOMINGUEZ Unavailable [phone] Encounters Encounter Location Date Provider Diagnosis [facility] [address] [place] [address] 07/20/2023 ESTHER DOMINGUEZ Plan Of Treatment No Information Progress Notes * ANDRÉS LANZAB:1990 (34 yo F)Acc No.[id number]:07/20/2023 Patient: Janine MAMI L[address] Provider: Lorin DOMINGUEZ PA-C :1990 A ge:32 Y S ex:Female Date:07/20/2023 Address:[address] [facility] * Electronic signature of YUNI DOMINGUEZ PA-C on 01/03/2025 at 08:32 AM EST Sign off status: Pending * Provider: Lorin DOMINGUEZ PA-C Date: 0 07/20/2023 Generated for Eric giordano/Blayne/eTransmitting on: 1 03/05/2024 08:32 AM EST
--- OUTSIDE RECORDS SUMMARY | 2024-11-05 09:00 | XMS_ITS ---
Author Organization [facility] Address [address] [address] Care Team Providers Care Mergers And Acquisitions Banker Name Role Phone Rosa Isela Kelly Primary Care Provider UnavailJUDY Lazar Unavailable [phone] REASON FOR VISIT 6wk Encounters Encounter Location Date Provider Diagnosis [facility] [address] [address] 11/05/2024 JUDY ANDERSON Plan Of Treatment No Information Progress Notes * Alyssa ALDRIDGESherB:1990 (34 yo F)Acc No.[id number]:11/05/2024 Progress Note Patient: Kanika GOODMAN Provider: Sanna Magdaleno DPM :1990 A ge:34 Y S ex:Female Date:11/05/2024 Phone: Address:[address], [place], [place] Pcp:Rosa Isela Kelly Subjective: * Chief Complaints: * 1 . 6wk. * Medical History: Objective: * Vitals: Assessment: Plan: * Treatment: * Billing Information: * Visit Code: * Procedure Codes: * Electronic signature of LISE ANDERSON D.P.M. on 01/03/2025 at 08:33 AM EST Sign off status: Pending * Provider: Sanna Magdaleno DPM Date: 0 11/05/2024 Generated for Eric giordano/Blayne/Zulyitting on: 1 03/05/2024 08:33 AM EST
--- OUTSIDE RECORDS SUMMARY | 2024-11-27 09:00 | XMS_ITS ---
Author Organization [facility] Address [address] [address] Care Team Providers Care Dedicated Intermodal Truck Driver Name Role Phone Rosa Isela Kelly Primary Care Provider UnavailJUDY Lazar Unavailable [phone] REASON FOR VISIT 4wk Encounters Encounter Location Date Provider Diagnosis [facility] [address] [address] 11/27/2024 JUDY ANDERSON Plan Of Treatment No Information Progress Notes * Alyssa ALDRIDGESherB:1990 (34 yo F)Acc No.[id number]:11/27/2024 Progress Note Patient: Kanika GOODMAN Provider: Sanna Magdaleno DPJordan :1990 A ge:34 Y S ex:Female Date:11/27/2024 Phone: Address:[address], [address], [place], [place] Pcp:Rosa Isela Kelly Subjective: * Chief Complaints: * 1 . 4wk. * Medical History: Objective: * Vitals: Assessment: Plan: * Treatment: * Billing Information: * Visit Code: * Procedure Codes: * Electronic signature of LISE ANDERSON D.P.M. on 01/03/2025 at 08:32 AM EST Sign off status: Pending * Provider: Sanna Magdaleno DPM Date: Generated for Eric giordano/Blayne/Camille on: 03/05/2024 08:32 AM EST
[2025-01-02 18:53] VITALS: BMI 38.6
--- NOTE | 2025-01-02 18:53 | MHC.OFFVISWM ---
VS Expanded 01/02/25 18:53 Height 5 ft 4 in Weight 225 lb BMI 38.6 Body Fat % 49.4 Body Fat Mass 111.1 Fat Free Mass 113.9 Visceral Fat Rating 20 Body Water % 34.7 Body Water Mass 78 Basal Metabolic Rate/Score 1,471 Intake Visit Reasons: TV Pre Op LSG 01/14/25 Allergies No Known Allergies Allergy (Verified 01/02/25 19:14) Medication List - Last Reconciled 01/02/25 by Dax Mercado MD bupropion HCl XL 300 mg PO DAILY escitalopram oxalate 20 mg PO DAILY iron,carbonyl-vitamin C 65 mg iron- 125 mg (Vitron-C) 1 tab PO DAILY lorazepam 0.5 mg PO BID omeprazole 20 mg PO DAILY thiamine HCl (vitamin B1) 100 mg PO DAILY HPI HPI TV Pre Op LSG 01/14/25: Details: Start time: 3pm, End time: 3.30pm ?I spent 15 minutes speaking with the patient on the phone plus an additional 15 minutes reviewing and updating records for a total of 30 minutes HPI Comments Details: Overall weight loss: 14lbs, or 5.86% TBWL Is doing 2 Fairlife shakes (4oz of Fairlife mixed with 4oz almond milk), 2 Fit Crunch protein bars and one meal (8 forks each) Exercise: walking outside [facility] Medical History (Updated 01/02/25 @ 19:20 by Dax Mercado MD) Obesity GERD (gastroesophageal reflux disease) Anxiety Depression Morbid obesity Surgical History Hx of wisdom tooth extraction Family History Mother No problems noted. Father No problems noted. Social History Are you a primary healthcare receptionist to a significant other at home: No Do you presently have visiting nurse or other home services: No Alcohol intake: never Patient Tobacco Use Status: Never used Tobacco Physical Exam Vital Signs: BMI result Body Mass Index 38.6 Telehealth Telehealth Telehealth Platform: Telephone Location of provider rendering services: practice address Location of patient: address on file Patient Identification confirmed using: Name, : Yes Telehealth method: voice only Patient verbally consented to treatment: Yes Patient verbally consented to billing insurance company: Yes Patient informed of any privacy concerns related to visit: Yes Minutes spent on Phone/Video with Pt.: 30 Assessment & Plan Assessment & Plan (1) Obesity: Code(s): E66.9 - Obesity, unspecified Category: Medical Qualifiers: Body mass index: BMI 38.0-38.9 Obesity classification: adult class 2 (BMI 35 - 39.9) Obesity type: due to excess calories Serious obesity comorbidity presence: with serious comorbidity Qualified Code(s): E66.01 - Morbid (severe) obesity due to excess calories; Z68.38 - Body mass index [BMI] 38.0-38.9, adult Plan: 1.? Plan for lap sleeve gastrectomy including upper GI endoscopy. All tests has been completed and reviewed and the patient is cleared for the surgery. ?If diaphragmatic or ventral hernias are present at time of surgery, these will be repaired laparoscopically as well. The surgery does not replace the need to change your lifestlyle which is the cause of the obesity problem. The surgery provides the motivation to try again to change your lifestyle, it reduces the appetite and make the transition to a better lifestyle easier and doubles the amount of weight you would lose compared to doing the lifestyle change without the surgery. You will need to be on a liquid diet with protein shakes for 2 weeks before surgery to maximize weight loss and boost your nutritional status to recover better from surgery and also for the first two weeks after surgery to let the stomach heal before we introduce other foods. After the first 2 weeks we will introduce protein bars and soft foods like scrambled eggs, cottage cheese and yogurt and after the 6th week will introduce meat, fish and cooked vegetables in small amounts. Over time you should be able to eat everything in small amounts. Side effects like nausea, vomiting, heartburn or abdominal pain are not common in the practice unless you are not following in the practice. This operation requires lifetime commitment to following in our practice and communication with me. You will much less weight and experience side effects if you don?t communicate or not following in the practice. Complications are rare and in our practice is about 1/10 of the national average. However, you can develop bleeding that may require transfusion (hasn?t happened for year in the practice), you may from complications (we did not have any deaths in the practice) and infections. Infections are usually a result of breakdown in communication or not understanding or following directions correctly. They are difficult to treat, they can happen during the first 6 weeks, they may require to be in the hospital for weeks or even months, not being able to eat by mouth and you may have drains and surgeries to try and correct the issue. Other risks and complications include possible conversion to an open procedure, leaks, small bowel obstruction, blood clots, cardiac, or pulmonary complications, as intermediate complications such as ulcers, insufficient weight loss and vitamin deficiencies. So far she has proven to be an excellent communicator and very compliant with all our directions accomplishing a great weight loss. I believe that she is an excellent candidate and she is ready. 2. Preop prescriptions were provided and explained the purpose of each one. Need to be purchased preop. Start Pantoprazole now as you get it from the pharmacy, 1 pill per day. Sucralfate and Zofran are for after surgery as needed. 3. Bowel prep: please do 7 packets ?of Miralax mixing each one with a an 8oz glass of water, crystal light, gatorade zero, or propel ?on 01/12/25 and the same amount on 01/13/25. The Miralax you begin with one packet at a time in 8oz water or crystal light, gatorade zero, or propel ?as early in the day as you can and you do them back to back until you finish them. Continue the protein shakes during? the bowel prep. 4. Needs to purchase 1oz medicine cups . 5. Needs to purchase Children's liquid Tylenol for postop pain control. 6. Avoid aspirin, motrin, Advil, Aleve, Ibuprofen, Naproxyn. Tylenol is OK. 7. She needs to purchase the Celebrate multivitamins from the hospital's gift shop. 8. Will do basic preop blood work-up any day between Monday07/06/24 and Monday07/10/24 fasting for 12 hours and is scheduled to see the Anesthesiologist prior to the day of surgery. 9. Importance of adherence to postop folllow-up and recommendations was underscored and she understands that. 10. Stop food and bars as of tomorrow 01/03/25 and continue with 2 FAIRLIFE protein shakes (MIX 4oz of Fairlife with 4oz almond milk for EACH) at 7am-9am and 10am-12pm AND THREE more FAIRLIFE protein shakes (8oz of FAIRLIFE EACH and NOT the whole bottle) at 1pm-3pm, 4pm-6pm and 7pm-9pm 11. No soups, broths or V8 12. The patient's?medical?history has been reviewed and they are considered low risk for post op DVT and therefore DVT prophylaxis is not considered necessary. Travel after surgery was reviewed. The patient has not disclosed any travel plans during the first 30 days after surgery and they have been advised that within the first 30 days after surgery any bus, plane, train or car travel over 2 hours in duration is contraindicated due to the possibility of developing blood clots from immobility. Any travel, needs to include periods of ambulation of 10 minutes in duration every 2 hours.? Patient was instructed to discuss any plans for travel during this period with their bariatric surgeon.? 13. Please take at the day of surgery the following medications: NONE 14. Stop any control pills and don't use them for one month after surgery 15. Absolutely no smoking or vaping, or marijuana until the surgery and for at least the first 4 weeks. Only nicotine patches are allowed. 16. Send me weight measurements on Monday01/07/25 and then on Monday01/14/25, the day of surgery before you go to the hospital. 18. Avoid any steroids by mouth for any reason. Let me know if someone prescribes them to you 19. These instructions supersede anything else you read in the handbook, anything you watched in videos or classes or you were told by any other provider. If there is any conflict, you follow the above instructions and nothing else. Orders: Orders C Reactive Protein 01/02/25 E66.01 - Morbid (severe) obesity due to excess calories, K21.9 - Gastro-esophageal reflux disease without esophagitis, Z68.38 - Body mass index [BMI] 38.0-38.9, adult Hemoglobin A1c 01/02/25 E66.01 - Morbid (severe) obesity due to excess calories, K21.9 - Gastro-esophageal reflux disease without esophagitis, Z68.38 - Body mass index [BMI] 38.0-38.9, adult Prothrombin Time INR 01/02/25 E66.01 - Morbid (severe) obesity due to excess calories, K21.9 - Gastro-esophageal reflux disease without esophagitis, Z68.38 - Body mass index [BMI] 38.0-38.9, adult TSH reflex Free T4 01/02/25 E66. - Morbid (severe) obesity due to excess calories, K21.9 - Gastro-esophageal reflux disease without esophagitis, Z68.38 - Body mass index [BMI] 38.0-38.9, adult Insulin 01/02/25 E66. - Morbid (severe) obesity due to excess calories, K21.9 - Gastro-esophageal reflux disease without esophagitis, Z68.38 - Body mass index [BMI] 38.0-38.9, adult Complete Blood Count Auto Diff 01/02/25 E66. - Morbid (severe) obesity due to excess calories, K21.9 - Gastro-esophageal reflux disease without esophagitis, Z68.38 - Body mass index [BMI] 38.0-38.9, adult Lipid Panel 01/02/25 E66. - Morbid (severe) obesity due to excess calories, K21.9 - Gastro-esophageal reflux disease without esophagitis, Z68.38 - Body mass index [BMI] 38.0-38.9, adult Comprehensive Met. Panel 01/02/25 E66. - Morbid (severe) obesity due to excess calories, K21.9 - Gastro-esophageal reflux disease without esophagitis, Z68.38 - Body mass index [BMI] 38.0-38.9, adult Type and Screen 01/02/25 E66. - Morbid (severe) obesity due to excess calories, K21.9 - Gastro-esophageal reflux disease without esophagitis, Z68.38 - Body mass index [BMI] 38.0-38.9, adult Medications: New pantoprazole 40 mg PO DAILY 90 tabs 0RF K21.9 - Gastro-esophageal reflux disease without esophagitis ondansetron Only take one every 12 hours as needed if you have nausea 4 mg PO Q12H 20 tabs 0RF nausea and vomiting R11.0 - Nausea polyethylene glycol 3350 Mix each measuring cup with 8oz of water, Crystal light, or Gatorade zero, or Propel and do 7 measuring cups on 01/12/25 and another 7 measuring cups on 11/24/25 17 grams PO DAILY 238 grams 0RF Z01.818 - Encounter for other preprocedural examination sucralfate 10 mL PO BID 600 mL 2RF K21.9 - Gastro-esophageal reflux disease without esophagitis
--- OUTSIDE RECORDS SUMMARY | 2025-01-03 08:32 | XMS_ITS | Patient Health Record ---
[facility] Address [address] [place] [address] Care Team Providers Care Chief Business Officer Name Role Phone ESTHER DOMINGUEZ Unavailable [phone] Allergies No Known Allergies Reason For Referral No Information Medications Medication SIG (Take, Route, Frequency, Duration) Notes Start Date End Date Status Wegovy 2.4 MG/0.75ML Solution Auto-injector INJECT 2.4 MG SUBCUTANEOUS WEEKLY 30 DAYS; Duration: 90 days Active Berberine HCI 500 MG Capsule as directed Orally Active Lexapro 20 MG Tablet 1 tablet Orally Once a day Active LORazepam 0.5 MG Tablet 1 tablet as need ed Orally twice a day Active Wegovy 1.7 MG/0.75ML Solution Auto-injector 1.7 mg Subcutaneous weekly; Duration: 30 days Active Wellbutrin XL 300 MG Tablet Extended Release 24 Hour 1 tablet in the morning Orally Once a day Active Social History Section Notes: Banker 1-2 cigarettes daily PHQ 9 Score: 11 Banker 1-2 cigarettes daily PHQ 9 Score: 11 Banker 1-2 cigarettes daily PHQ 9 Score: 11 Banker 1-2 cigarettes daily PHQ 9 Score: 11 Banker 1-2 cigarettes daily PHQ 9 Score: 11 Banker 1-2 cigarettes daily PHQ 9 Score: 11 Problems Problem Type SNOMED Code ICD Code Onset Dates Problem Status W/U Status Risk Notes Problem Morbid obesity (disorder) (312158842) Morbid (severe) obesity due to excess calories (E66.01) Active confirmed Problem Obesity (631529664) Other obesity (E66.8) Active confirmed Problem Adult health examination (034001404) Encounter for general adult medical examination without abnormal findings (Z00.00) Active confirmed Problem Hyperlipidaemia (26772389) Hyperlipidemia, unspecified hyperlipidemia type (E78.5) Active confirmed Problem Body mass index 40+ - morbidly obese (799152877) BMI 40.0-44.9, adult (Z68.41) Active confirmed Problem Obese class II (463737027888382) BMI 35.0-35.9,adult (Z68.35) Active confirmed Problem Diabetes mellitus screening (950189824) Screening for diabetes mellitus (Z13.1) Active confirmed Problem Obese class II (277672327335136) BMI 39.0-39.9,adult (Z68.39) Active confirmed Problem Obese class II (107902434556875) BMI 38.0-38.9,adult (Z68.38) Active confirmed Problem Body mass index 30.00 to 34.99 (634551704852304) BMI 34.0-34.9,adult (Z68.34) Active confirmed Encounters Encounter Location Date Provider Diagnosis [facility] [place] [place] [address] 01/15/2024 ESTHER DOMINGUEZ Plan Of Treatment Pending Test Test Name Order Date LIPID PANEL 12/31/2022 Insulin Level 12/31/2022 Insurance Providers Payer Name Payer Address Payer Phone Subscriber Number Group Number Insured Name Patient Relationship to Insured Coverage Start Date Coverage End Date [facility] [address] [place] [address] [id number] MAMI LANZA Self - patient is the insured Medications Administered Medication Instructions Date of Administration Dosage Notes Semaglutide 12/31/2022 Semaglutide 01/06/2023 0.25 mg LLQ SQ Semaglutide 01/14/2023 0.5 mg LRQ SQ Semaglutide 01/20/2023 0.5 Semaglutide 01/28/2023 0.5 mg LLQ SQ Semaglutide 02/03/2023 0.5 mg Semaglutide 02/17/2023 0.5 mg lot#[id number] 0.5mg Semaglutide 02/24/2023 1 mg Semaglutide 03/03/2023 1 mg Semaglutide 03/10/2023 1 mg Semaglutide 03/17/2023 1.0 mg L tricep SQ Semaglutide 03/23/2023 1 mg Semaglutide 03/31/2023 Semaglutide 04/08/2023 1 Medical (General) History Medical History History ICD Code hyperlipidemia headaches weight change seasonal allergies depression
--- OUTSIDE RECORDS SUMMARY | 2025-01-03 08:33 | XMS_ITS | Patient Health Record ---
Author Organization [facility] Address [address] [address] Care Team Providers Care Family Worker Name Role Phone DrytownRosa Isela abbasi Primary Care Provider UnavailJUDY Lazar Unavailable [phone] Allergies No Known Allergies Reason For Referral [...] W/U Status Risk Notes Problem Plantar fasciitis (705859348) Plantar fasciitis (M72.2) Active confirmed Vital Signs [...] A Encounters Encounter Location Date Provider Diagnosis [facility] [address] [address] 09/24/2024 JUDY MONICA Pain of right heel M79.671 and Plantar fasciitis M72.2 [facility] [address] [address] 10/25/2024 JUDY MONICA Pain of right heel M79.671 and Plantar fasciitis M72.2 [facility] [address] [address] 10/14/2024 JUDY MONICA Assessments Encounter Date Diagnosis [...] physical therapy, oral anti-inflammatories, steroid injection, night splint/[place] sock, ESWT, and immobilization with CAM boot [...] Insured Coverage Start Date Coverage End Date [facility] [address] [address] [place] [phone] [id number] Kanika Aldridge Self - patient is the insured Medications Administered Medication Instructions Date of Administration Dosage Notes dexAMETHasone Sod Phosphate PF 09/24/2024 2 mg Kenalog 09/24/2024 5 mg Medical (General) History Medical History History ICD Code Anxiety Ovarian cyst Obesity (BMI 30.0-39.9)
== END 2025-01-03 19:52 | disposition home or self-care (01) ==
LOC: HO.HBS 08:21
PROVIDERS: PCP Nurse Practitioner Primary Care; Visit Provider Surgery
DX: E66.01 Morbid (severe) obesity due to excess calories (principal); Z68.38 Body mass index [BMI] 38.0-38.9, adult
CPT/HCPCS: 99499

== ENCOUNTER 2025-01-08 13:50 | Outpatient (REF) | payer OTHER, SELFPAY ==
[2025-01-08 15:00] LABS: MANUAL DIFF FLAG NO
[2025-01-08 15:45] LABS: Hematocrit 38.1 % (37.0-47.0); Hemoglobin 11.2 g/dl (12.0-16.0); Imm Gran Abs Auto 0.03 X10*3/uL (0.00-0.03); Imm Gran Pct Auto 0.3 % (0.0-0.4); Lymphocytes Absolute Auto 2.6 X10*3/uL (1.2-4.9); Mean Corpuscular HGB Conc 29.4 g/dl (31.0-35.0); Mean Corpuscular Hemoglobin 21.4 pg (27.0-33.0); Mean Corpuscular Volume 72.8 fL (80.0-98.0); NRBC Abs Auto 0.000 X10*3/uL (0.0-0.012); NRBC Pct Auto 0.0 /100WBC (0.0-0.2); Platelet Count 472 X10*3/uL (160-400); Red Blood Count 5.23 X10*6/uL (4.20-5.50); White Blood Count 9.9 X10*3/uL (4.8-10.8)
[2025-01-08 15:48] LABS: INTERNATIONAL NORM RATIO 1.1 (0.9-1.1); Prothrombin Time 14.0 SEC (11.2-13.5)
[2025-01-08 16:20] LABS: Alanine Aminotransferase 18 U/L (0-31); Albumin Level 4.9 g/dL (3.5-5.0); Alkaline Phosphatase 90 U/L (39-117); Anion Gap 12 (12-20); Aspartate Amino Transferase 17 U/L (5-31); Blood Urea Nitrogen 14 mg/dL (9-16); Calcium 9.4 mg/dL (8.4-10.2); Carbon Dioxide 26 mmol/L (22-29); Chloride 104 mmol/L (96-108); Cholesterol 166 mg/dL (<200); Estimated Glomerular Filt Rate > 60; HDL Cholesterol 45 mg/dL (>40); Potassium 4.0 mmol/L (3.3-5.1); Sodium 138 mmol/L (135-145); Total Protein 7.9 g/dL (6.5-8.0); Triglycerides 63 mg/dL (<150)
== END 2025-01-08 13:51 | disposition home or self-care (01) ==
LOC: HO.LAB 13:50
PROVIDERS: Surgery; PCP Nurse Practitioner Primary Care; Visit Provider Physician Assistant Surgical
DX: Z51.81 Encounter for therapeutic drug level monitoring (principal); Z13.1 Encounter for screening for diabetes mellitus; Z13.29 Encounter for screening for other suspected endocrine disorder; E66.01 Morbid (severe) obesity due to excess calories; K21.9 Gastro-esophageal reflux disease without esophagitis; Z68.38 Body mass index [BMI] 38.0-38.9, adult
CPT/HCPCS: 36415; 80053; 80061; 83036; 83525; 84443; 85025; 85610; 86140

== ENCOUNTER 2025-01-14 12:22 | Inpatient (IN) | payer OTHER, SELFPAY ==
--- OUTSIDE RECORDS SUMMARY | 2023-07-20 10:30 | XMS_ITS ---
Author Organization [facility] [address] Address [address] [place] [address] Care Team Providers Care Radio Interference Expert Name Role Phone ESTHER DOMINGUEZ Unavailable [phone] Encounters Encounter Location Date Provider Diagnosis [facility] [place] [address] 07/20/2023 ESTHER DOMINGUEZ Plan Of Treatment No Information Progress Notes * ANDRÉS LANZAB:1990 (34 yo F)Acc No.[id number]:07/20/2023 Patient: Janine MAMI LANE Provider: Lorin DOMINGUEZ PA-C :1990 A ge:32 Y S ex:Female Date:07/20/2023 Address:[address] [facility] [facility] * Electronic signature of YUNI DOMINGUEZ PA-C on 01/14/2025 at 03:59 PM EST Sign off status: Pending * Provider: Lorin DOMINGUEZ PA-C Date: 0 07/20/2023 Generated for Eric giordano/Blayne/eTransmitting on: 1 03/16/2024 03:59 PM EST
--- OUTSIDE RECORDS SUMMARY | 2024-11-05 09:00 | XMS_ITS ---
Author Organization [facility] Address [address] [address] Care Team Providers Care Toy Painter Name Role Phone Rosa Isela Kelly Primary Care Provider UnavailJUDY Lazar Unavailable [phone] REASON FOR VISIT 6wk Encounters Encounter Location Date Provider Diagnosis [facility] [address] [address] 11/05/2024 JUDY ANDERSON Plan Of Treatment No Information Progress Notes * Alyssa ALDRIDGESherB:1990 (34 yo F)Acc No.[id number]:11/05/2024 Progress Note Patient: Kanika GOODMAN Provider: Sanna Magdaleno DPJordan :1990 A ge:34 Y S ex:Female Date:11/05/2024 Phone: Address:[address], [place], [place] Pcp:Rosa Isela Kelly Subjective: * Chief Complaints: * 1 . 6wk. * Medical History: Objective: * Vitals: Assessment: Plan: * Treatment: * Billing Information: * Visit Code: * Procedure Codes: * Electronic signature of LISE ANDERSON D.P.M. on 01/14/2025 at 04:00 PM EST Sign off status: Pending * Provider: Sanna Magdaleno DPM Date: 0 11/05/2024 Generated for Eric giordano/Blayne/Camille on: 03/16/2024 04:00 PM EST
--- OUTSIDE RECORDS SUMMARY | 2024-11-27 09:00 | XMS_ITS ---
Author Organization [facility] Address [address] [address] Care Team Providers Care Auto Brake Technician Name Role Phone Rosa Isela Kelly Primary Care Provider UnavailJUDY Lazar Unavailable [phone] REASON FOR VISIT 4wk Encounters Encounter Location Date Provider Diagnosis [facility] [address] [address] 11/27/2024 JUDY ANDERSON Plan Of Treatment No Information Progress Notes * Alyssa ALDRIDGESherB:1990 (34 yo F)Acc No.[id number]:11/27/2024 Progress Note Patient: Kanika GOODMAN Provider: Sanna Magdaleno DPJordan :1990 A ge:34 Y S ex:Female Date:11/27/2024 Phone: Address:[address], [address], [place], [place] Pcp:Rosa Isela Kelly Subjective: * Chief Complaints: * 1 . 4wk. * Medical History: Objective: * Vitals: Assessment: Plan: * Treatment: * Billing Information: * Visit Code: * Procedure Codes: * Electronic signature of LISE ANDERSON D.P.M. on 01/14/2025 at 04:00 PM EST Sign off status: Pending * Provider: Sanna Magdaleno DPM Date: Generated for Eric giordano/Blayne/Camille on: 03/16/2024 04:00 PM EST
[2025-01-09 14:26] VITALS: BMI 37.8
[2025-01-14] VITALS (13 sets, daily range): BP systolic 107–130; BP diastolic 39–65; PULSE 66–96; RESP 14–26; TEMP 36.1–37.2; O2SAT 93–100; BMI 37.2; BMI 38.6
[2025-01-14 12:39] LABS: UPreg QC Valid YES
[2025-01-14] MEDS: Aprepitant 32 MG/4.4 ML VIAL IVPUSH (12:52)
[2025-01-14] MEDS: Lactated Ringers 1,000 ML 999 ML IV (12:52)
--- NOTE | 2025-01-14 14:15 | MHC.SHP ---
Pre-Procedural Eval Section A - 24 Hr Update-Section A only Date of Service: 01/14/25 The patient is an INPATIENT: Yes The patient has been examined within 24 hours of the surgical procedure. The History & Physical has been completed within 30 days and I have reviewed it.: No Section B - Complete if H&P > 30 days Chief Complaint: Obesity Relevant Family History (Specify if Yes): No Relevant Social History: None Present Medications: None Medical History: No relevant PMH History of Previous Operations: No relevant previous surgery Allergies: Allergies Allergy/AdvReac Type Severity Reaction Status Date / Time No Known Allergies Allergy Verified 01/09/25 14:30 Review of Systems Sugical H&P ROS: Negative: Constitution, Cardiovascular, Respiratory, Neurological, Psychiatric, Hem-Onc, Allergic/Immunologic, Gastrointestinal, Genitourinary, Musculoskeletal, Integumentary, Endocrine and Eyes/Ears/Nose/Throat Exam Surgical H&P Exam: Normal: HEENT, Normal: Heart, Normal: Lungs, Normal: Extremities, Normal: Abdomen, Normal: Skin and Normal: Neurological Plan Diagnosis/Plan: Unchanged I have reviewed the history and physical and performed a pertinent physical examination on my patient. No changes have occurred unless specified. Time Spent With Patient Time: Total time managing care of this patient today ____ minutes.
--- NOTE | 2025-01-14 14:16 | P.BOP_ITS ---
Brief Operative Note Date of Service: 01/14/25 Pre-op diagnosis: Severe obesity with comorbidities (see below) Post-op diagnosis: same (& congenital abdominal adhesions) Procedure: INITIAL PATIENT BMI ON PRESENTATION AT OUR OFFICE: 41.1 kg/m2 LAST BMI BEFORE SURGERY: 37.3 kg/m2 COMORBIDITIES: GERD, depression, anxiety, ?The patient presented to the Weight Management Program with significant obesity that was negatively impacting the patient's comorbidities as listed above.? The program is a phased program with a special focus on preoperative medical weight management to promote substantial weight loss and prepare the patients for the second phase of the program: bariatric surgery. The patient participated in an intensive weekly lifestyle ?intervention and exercise program during which the patient ?has lost between the initial office visit and the last preoperative visit 21.8 lbs, or 9.12% of initial actual body weight. It was deemed appropriate for the patient to now have bariatric surgery. In light of the current Covid-19 pandemic and the well documented strong association of obesity and increased risk of worse outcomes if infected with Covid-19 (REFERENCES: https://pubmed.ncbi.nlm.nih.gov/73418568/ ,? https://pubmed.ncbi.nlm.nih.gov/75962766/ ), any delay in undergoing bariatric surgery may lead to the patient's worsening health condition and increased?risk of more severe Covid-19 disease if infected. In addition a recent?study from [facility] published in HIRAL Surgery on 02/15/2021 ([id number] [email or web address]) found that, among patients with obesity, substantial weight loss achieved with surgery was associated with improved outcomes of COVID-19 infection. The findings suggest that obesity can be a modifiable risk factor for the severity of COVID-19 infection. In addition, the patient met the BMI-criteria for bariatric surgery based on the BMI on initial presentation. The patient should not be penalized for achieving such weight loss because ?it is not sustainable long-term without surgical intervention and it was achieved in preparation for bariatric surgery ?under my direction and based on my published research ([email or web address]:/[email or web address]).pdf and? https://www.soard.org/article/U3167-9363(83)46269-X/pdf ) ?that a 10% preoperative weight loss improves long-term weight loss after surgery and reduces perioperative complications.? Insurance carriers such as [facility] have endorsed my recommendations ?and have included in their policies criteria to include a 10% preoperative weight loss requirement. PROCEDURE: Esophago-gastroscopy, laparoscopic lysis of adhesions, laparoscopic sleeve gastrectomy and laparoscopic gastropexy INDICATIONS: This is a 34 year-old female who was electively scheduled for laparoscopic, possibly open sleeve gastrectomy. The risks and complications of the procedure were discussed with the patient in advance, particularly the possibility of ; pulmonary embolism; staple line leak; bleeding; GERD; cardiac, pulmonary, or renal complications; as well as long-term problems such as insufficient weight loss, vitamin deficiency, strictures, or ulcers. The patient understood all the risks, and was in agreement to proceed with surgery. DESCRIPTION OF PROCEDURE: After informed consent was obtained from the patient, the patient was given preoperative antibiotics, and was transferred to the operating room. After successful induction of general anesthesia, pneumatic compression devices were placed on both lower extremities. An upper endoscopy was performed next. The oropharynx and esophagus appeared to be within normal limits. There was no significant diaphragmatic hernia present. The stomach was entered. Then after all fluid and air were suctioned and the stomach was fully decompressed, the scope was withdrawn and secured in the mid esophagus. The patient was then prepped and draped in the usual sterile manner, and abdominal access was established at the right upper quadrant with the Milagros technique. A 12 mm blunt port was inserted, and the abdomen was insufflated with CO2 to a pressure of 15 mmHg. Under direct visualization, additional ports were placed, specifically two 5 mm Versi-step ports to the left upper quadrant, and a 5 mm Versi-Step port to the right upper quadrant. 1% lidocaine plain was used to infiltrate all port sites as well as all fascia defects. Following that, the patient was placed in a steep reverse Trendelenburg position. An additional 5 mm port was placed to the right flank for the Mediflex retractor that was used to retract the left lobe of the liver. The gastro-esophageal fat pad was opened with the ultrasonic device (Thunderbeat, Olympus) and the anterior esophagus and hiatus were exposed. The angle of His was opened with the ultrasonic device the fundus of the stomach from any diaphragmatic and splenic attachments. I then opened the gastrocolic ligament between the transverse colon and the greater curvature of the stomach with the ultrasonic device to enter the lesser sac and facilitate the ligation of the short gastric vessels. I started at a mid-point along the greater curvature and using the Thunderbeat, all short gastric vessels were divided all the way to the angle of His until the left edvin was completely dissected at its entirety. I then divided the gastro-colic ligament distally to a distance of about 3-4 cm proximal to the pylorus. The stomach was densely adherent to the spleen making dissection extremely difficult prolonging the operation. There were extensive congenital adhesions between the pancreas and posterior gastric wall. Those were lysed completely with the ultrasonic device. Adhesiolysis took approximately 45 min to complete. The stomach was then divided transversely with two Endo LEÓN-45 purple and three LEÓN-60 articulating purple loads using the SIGNIA stapler and loads. Every effort was made that the gastric sleeve had a tubular shape and an even caliber throughout. Once the sleeve resection was completed, the staple line of the gastric sleeve was reinforced with Hemoclips. The resected stomach was retrieved without difficulty from the Milagros port. A gastropexy was then performed in order to prevent postoperative GERD and partial gastric volvulus. Several interrupted 2.0 Surgidac sutures were placed between the sleeve's staple line and the previously divided greater omentum and gastro-colic ligament using the Endo-Stitch device. ?An upper endoscopy was performed. There was no narrowing at the GE junction. The scope was easily advanced all the way to the pylorus which was clearly visualized. There was no narrowing anywhere and the sleeve's caliber was even throughout. The sleeve's staple line was inspected and there was no evidence of ischemia, bleeding or dehiscence. At that point the gastroscope was withdrawn from the patient?s mouth while we were decompressing the bowel and the stomach from any remaining air. I looked into the lesser sac to see how the sleeve was situating and it was situating well. There was no bleeding from the staple line, spleen, or short gastric vessels. The Mediflex retractor was removed, and the undersurface of the liver was inspected and there was no bleeding. The patient was placed in supine position. I closed the fascial defect of the 12 mm port site with a figure of eight #1 Polysorb suture. Then 30cc Ropivacaine plain with 10 mg of Dexamethasone were used to infiltrate the fascial closure as well as all skin incisions. At this point, the abdomen was deflated, all ports were removed under direct vision, and no bleeding was noted from any of the port sites. The skin incisions were irrigated with saline and were closed with 4-0 absorbable monofilament sutures. Steri-Strips and OpSites were used to cover all incisions. The patient was extubated and was transferred in stable condition to the recovery room for further care. I was present and performed all soares parts of the procedure. Ms. Cameron was the welder first class and Ms Chapin the second family services assistant. There were no residents to assist with this case. Juan Pablo Mercado MD, PhD, FACS Surgeon: Dax Mercado MD Anesthesia: GETA, local and other (TAP block) Was an Drama Teacher used for this Procedure?: No Drama Teacher: Kaya Cameron Estimated blood loss (mL): 10 IV fluids (mL): 2,000 Urine output (mL): 0 (No Dyer to record output) Pathology: other (1) Stomach) Condition: stable Disposition: PACU
--- NOTE | 2025-01-14 14:20 | P.PNGS_ITS ---
Subjective Subjective Date of Service: 01/15/25 Interval history: Feels well. Mild incisional pain. She is tolerating phase 1 bariatric diet Physical Exam 2 Vital Signs: Vital Signs: Last Vital Signs Temp 97 F 01/14/25 12:36 Pulse 66 01/14/25 12:36 Resp 20 01/14/25 12:36 BP 130/59 L 01/14/25 12:36 Pulse Ox 98 01/14/25 12:36 O2 Del Method Room Air 01/14/25 12:36 BMI result Body Mass Index 37.2 GI: Inspection: Yes normal to inspection, Yes incision (clean, dry and intact) and Yes obesity Palpation (GI): Soft to palpation Extrem: Right lower extremity: normal to inspection (no calf tenderness) L eft lower extremity: normal to inspection (no calf tenderness) Objective Data Active Medications Lactated Ringer's (Lr) 1,000 mls @ 999 mls/hr IV .Q1H1M CHANDRAKANT Stop: 01/14/25 14:30 Last Admin: 01/14/25 12:52 Dose: 999 mls/hr Documented By: ELIZABETH Lactated Ringer's (Lr) 1,000 mls @ 100 mls/hr IVCONT .Q10H CHANDRAKANT Stop: 01/14/25 16:29 Labs 01/15/25 05:26 01/15/25 05:26 Labs: Laboratory Results - last 24 hr 01/14/25 12:20 Urine Test NEGATIVE Procedures Date of Service Date of Service: 01/15/25 Progress Note: A&P Assessment and plan (1) Obesity: Status: Acute Assessment and Plan: s/p laparoscopic sleeve gastrectomy, lysis of adhesions and gastropexy Doing well Will check am labs and if OK the patient will be discharged home (2) BMI 37.0-37.9, adult: Status: Acute (3) Depression: Status: Acute (4) Anxiety: Status: Acute (5) GERD (gastroesophageal reflux disease): Status: Acute (6) S/P laparoscopic sleeve gastrectomy: Status: Acute (7) Congenital intra-abdominal adhesions: Status: Acute Time Spent With Patient Time: Total time managing care of this patient today ____ minutes. Quality Stroke Does the patient have a stroke diagnosis?: No VTE Prior VTE?: No VTE Risk Level:: Surgical - moderate VTE Device Contraindication: N/A - Device Ordered VTE Drug Contraindication: Treatment Not Indicated
--- NOTE | 2025-01-14 14:29 | HO.ANESPROP2 ---
Documented by User: Vane Fernandez NP 01/09/25 13:11 HPI - Anesthesia Eval Consult details Narrative: 34yo F for Gastrectomy Sleeve,EGD,possible Diaphragmatic Hernia,possible Ventral Hernia,possible Open BMI 38 PMFSH Active Problems Active Problems: All Active Problems Obesity (Acute) Vitamin B1 deficiency (Acute) Iron (Fe) deficiency anemia (Acute) GERD (gastroesophageal reflux disease) (Acute) Anxiety (Acute) Depression (Acute) Morbid obesity (Acute) Past Medical History Medical History (Updated 01/14/25 @ 14:21 by Dax Mercado MD) Obesity GERD (gastroesophageal reflux disease) Anxiety Depression Morbid obesity Family History Family History Mother No problems noted. Father No problems noted. Surgical History Surgical History (Updated 01/09/25 @ 14:25 by Susi Barnett RN) History of esophagogastroduodenoscopy (EGD) (12/10/24) Hx of wisdom tooth extraction History of Problems with Anesthesia: No Social History Social History (Updated 01/09/25 @ 14:28 by Susi Barnett RN) Household Members: Family Housing: Apartment Are you a primary respiratory care assistant to a significant other at home: No Do you presently have visiting nurse or other home services: No Alcohol intake: never Patient Tobacco Use Status: Former Tobacco user Tobacco use type: Cigarette Use of substances other than those prescribed or required for medical reasons: No Have you been hit, kicked, punched, or otherwise hurt by someone within the past year? If so, by whom?: No Are you DNR?: No Advance Directives: No Advance Directives Information Provided: Yes Advance Directives on File: No Healthcare Proxy: No Patient : No FDLMP: 12/19/2024 : No Meds Allergies Allergy/AdvReac Type Severity Reaction Status Date / Time No Known Allergies Allergy Verified 01/09/25 14:30 Home Medications ?Medication ?Instructions ?Recorded ?Confirmed ?Last Taken ?Type bupropion HCl 300 mg 24 hr tablet, 300 mg PO DAILY 11/08/24 01/09/25 01/13/25 History extended release escitalopram oxalate 20 mg tablet 20 mg PO DAILY 11/08/24 01/09/25 01/13/25 History lorazepam 0.5 mg tablet 0.5 mg PO BID 11/08/24 01/09/25 11/14/24 History omeprazole 20 mg capsule,delayed 20 mg PO DAILY 11/08/24 01/09/25 01/13/25 History release Exam Pertinent Lab Results Pertinent Lab Results: Laboratory Tests 01/08/25 15:00 Blood Type O Positive Antibody Screen NEGATIVE Laboratory Tests 01/08/25 14:59 WBC 9.9 Hgb 11.2 L D Hct 38.1 D Plt Count 472 H Sodium 138 Potassium 4.0 Chloride 104 Carbon Dioxide 26 BUN 14 Creatinine 0.78 Narrative Narrative: EKG 10/2024 Vent. Rate : 79 BPM Atrial Rate : 79 BPM P-R Int : 176 ms QRS Dur : 72 ms QT Int : 394 ms P-R-T Axes : 59 27 42 degrees QTcB Int : 451 ms Normal sinus rhythm Normal ECG No previous ECGs available Assessment and Plan Assessment Anesthesia Assessment: Chart Reviewed Final Anesthetic Review History of Problems with Anesthesia: No Documented by User: Lee Ann Cr DO 01/14/25 14:30 HPI - Anesthesia Eval Consult details Narrative: 34yo F for Gastrectomy Sleeve,EGD,possible Diaphragmatic Hernia,possible Ventral Hernia,possible Open BMI 37 PMFSH Past Medical History Medical History (Updated 01/14/25 @ 14:21 by Dax Mercado MD) Obesity GERD (gastroesophageal reflux disease) Anxiety Depression Morbid obesity Family History Family History Mother No problems noted. Father No problems noted. Family history of problems with anesthesia: No Surgical History Surgical History (Updated 01/09/25 @ 14:25 by Susi Barnett, ROSITA) History of esophagogastroduodenoscopy (EGD) (12/10/24) Hx of wisdom tooth extraction History of Problems with Anesthesia: No Social History Social History (Updated 01/09/25 @ 14:28 by Susi Barnett, RN) Household Members: Family Housing: Apartment Are you a primary respiratory care assistant to a significant other at home: No Do you presently have visiting nurse or other home services: No Alcohol intake: never Patient Tobacco Use Status: Former Tobacco user Tobacco use type: Cigarette Use of substances other than those prescribed or required for medical reasons: No Have you been hit, kicked, punched, or otherwise hurt by someone within the past year? If so, by whom?: No Are you DNR?: No Advance Directives: No Advance Directives Information Provided: Yes Advance Directives on File: No Healthcare Proxy: No Patient : No FDLMP: 12/19/2024 : No Meds Allergies Allergy/AdvReac Type Severity Reaction Status Date / Time No Known Allergies Allergy Verified 01/09/25 14:30 Home Medications ?Medication ?Instructions ?Recorded ?Confirmed ?Last Taken ?Type bupropion HCl 300 mg 24 hr tablet, 300 mg PO DAILY 11/08/24 01/09/25 01/13/25 History extended release escitalopram oxalate 20 mg tablet 20 mg PO DAILY 11/08/24 01/09/25 01/13/25 History lorazepam 0.5 mg tablet 0.5 mg PO BID 11/08/24 01/09/25 11/14/24 History omeprazole 20 mg capsule,delayed 20 mg PO DAILY 11/08/24 01/09/25 01/13/25 History release Exam Exam Date and Time: 01/14/25 1425 Height,Weight and Vital Signs: Height 5 ft 4 in Weight 98.43 kg Vital Signs Temperature 97 F 01/14/25 12:36 Pulse Rate 66 01/14/25 12:36 Respiratory Rate 20 01/14/25 12:36 Blood Pressure 130/59 L 01/14/25 12:36 Pulse Oximetry 98 01/14/25 12:36 Oxygen Delivery Method Room Air 01/14/25 12:36 Temperature 97 F 01/14/25 12:36 Pulse Rate 66 01/14/25 12:36 Respiratory Rate 20 01/14/25 12:36 Blood Pressure 130/59 L 01/14/25 12:36 Pulse Oximetry 98 01/14/25 12:36 Oxygen Delivery Method Room Air 01/14/25 12:36 Airway Mallampati Class: I TM Dist: >3cm Neck ROM: Full Loose/Missing/Broken Teeth: No (patient denies any loose or broken teeth) Heart: S1S2 Lungs: CTAB Assessment and Plan Assessment Anesthesia Assessment: Anesthesia Plan Discussed and Chart Reviewed Final Anesthetic Review Family History of Problems with Anesthesia: No History of Problems with Anesthesia: No NPO: Yes ASA Class: II Final Preanesthetic Review: No Changes in Pt Med Stat, Meds/Allgs Chart Reviewed, Consent Obtained/Reviewed and Anes Risks/Benef Reviewed Patient Risk: Low Procedure Risk: Intermediate Anesthetic Plan Anesthetic Plan: GA and Agree w/ Assess. and Plan Disposition: Standard PACU
--- OUTSIDE RECORDS SUMMARY | 2025-01-14 16:00 | XMS_ITS | Patient Health Record ---
Author Organization [facility] Address [address] [address] Care Team Providers Care Borematic Machine Operator Name Role Phone GerrardstownRosa Isela abbasi Primary Care Provider UnavailJUDY Lazar Unavailable [phone] Allergies No Known Allergies Reason For Referral [...] W/U Status Risk Notes Problem Plantar fasciitis (090958266) Plantar fasciitis (M72.2) Active confirmed Vital Signs [...] A Encounters Encounter Location Date Provider Diagnosis [facility] [address] [address] 09/24/2024 JUDY MONICA Pain of right heel M79.671 and Plantar fasciitis M72.2 [facility] [address] [address] 10/25/2024 JUDY MONICA Pain of right heel M79.671 and Plantar fasciitis M72.2 [facility] [address] [address] 10/14/2024 JUDY MONICA Assessments Encounter Date Diagnosis [...] physical therapy, oral anti-inflammatories, steroid injection, night splint/[place] sock, ESWT, and immobilization with CAM boot [...] Insured Coverage Start Date Coverage End Date [facility] [address] [address] [place] [address] [id number] Kanika Aldridge Self - patient is the insured Medications Administered Medication Instructions Date of Administration Dosage Notes dexAMETHasone Sod Phosphate PF 09/24/2024 2 mg Kenalog 09/24/2024 5 mg Medical (General) History Medical History History ICD Code Anxiety Ovarian cyst Obesity (BMI 30.0-39.9)
--- OUTSIDE RECORDS SUMMARY | 2025-01-14 16:00 | XMS_ITS | Patient Health Record ---
[facility] Address [address] [place] [address] Care Team Providers Care Humidifier Operator Name Role Phone ESTHER DOMINGUEZ Unavailable [phone] Allergies No Known Allergies Reason For Referral [...] Status Risk Notes Problem Morbid obesity (disorder) (922524167) Morbid (severe) obesity due to excess calories (E66.01) Active confirmed Problem Obesity (116135737) Other obesity (E66.8) Active confirmed Problem Adult health examination (617542937) Encounter for general adult medical examination without abnormal findings (Z00.00) Active confirmed Problem Hyperlipidaemia (43284462) Hyperlipidemia, unspecified hyperlipidemia type (E78.5) Active confirmed Problem Body mass index 40+ - morbidly obese (084036714) BMI 40.0-44.9, adult (Z68.41) Active confirmed Problem Obese class II (406225261767942) BMI 35.0-35.9,adult (Z68.35) Active confirmed Problem Diabetes mellitus screening (437136886) Screening for diabetes mellitus (Z13.1) Active confirmed Problem Obese class II (902793943815576) BMI 39.0-39.9,adult (Z68.39) Active confirmed Problem Obese class II (764176834547896) BMI 38.0-38.9,adult (Z68.38) Active confirmed Problem Body mass index 30.00 to 34.99 (763857148339250) BMI 34.0-34.9,adult (Z68.34) Active confirmed Encounters Encounter Location Date Provider Diagnosis [facility] [address] [place] [address] 01/15/2024 ESTHER DOMINGUEZ Plan Of Treatment Pending Test Test Name Order Date LIPID PANEL 12/31/2022 Insulin Level 12/31/2022 Insurance Providers Payer Name Payer Address Payer Phone Subscriber Number Group Number Insured Name Patient Relationship to Insured Coverage Start Date Coverage End Date [facility] [address] [place] [address] [id number] MAMI LANZA Self - patient is the insured Medications Administered Medication Instructions Date of Administration Dosage Notes Semaglutide 12/31/2022 Semaglutide 01/06/2023 0.25 mg LLQ SQ Semaglutide 01/14/2023 0.5 mg LRQ SQ Semaglutide 01/20/2023 0.5 Semaglutide 01/28/2023 0.5 mg LLQ SQ Semaglutide 02/03/2023 0.5 mg Semaglutide 02/17/2023 0.5 mg lot#[id number] 0.5mg Semaglutide 02/24/2023 1 mg Semaglutide 03/03/2023 1 mg Semaglutide 03/10/2023 1 mg Semaglutide 03/17/2023 1.0 mg L tricep SQ Semaglutide 03/23/2023 1 mg Semaglutide 03/31/2023 Semaglutide 04/08/2023 1 Medical (General) History Medical History History ICD Code hyperlipidemia headaches weight change seasonal allergies depression
--- NOTE | 2025-01-14 17:12 | P.DS_ITS ---
DS: Providers Provider Date of Service: 01/14/25 Date of admission: 01/14/25 12:22 Date of discharge: 01/15/25 Primary care physician: Vilma Kelly CNP DS: Diagnosis Discharge Diagnosis (1) Obesity: Status: Acute (2) BMI 37.0-37.9, adult: Status: Acute (3) Depression: Status: Acute (4) Anxiety: Status: Acute (5) GERD (gastroesophageal reflux disease): Status: Acute DS: Summary Hospital Course Hospital Course: ADMITTING DIAGNOSIS: morbid obesity DISCHARGE DIAGNOSIS: same, s/p laparoscopic sleeve gastrectomy and gastropexy PAST HISTORY:? Medical History Obesity GERD (gastroesophageal reflux disease) Anxiety Depression Morbid obesity Surgical History Hx of wisdom tooth extraction PROCEDURE: upper endoscopy, laparoscopic sleeve gastrectomy and gastropexy DISCHARGE SUMMARY: History of Present Illness: The patient is a?34 year-old woman with a BMI of?37.2 kg/m2 and associated co- morbidities as described above. The patient had extensive work-up, lost 22 lbs preoperatively and was electively scheduled for laparoscopic, possible open sleeve gastrectomy and gastropexy. Risks and complications of the surgery were discussed with the patient in advance, particularly the possibility of , pulmonary embolism, anastomotic leak, bleeding, bowel injury, GERD, cardiac, renal or pulmonary complications. The patient understood all the risks and was in agreement with the surgical plan. Hospital Course: The patient underwent an uneventful laparoscopic sleeve gastrectomy with gastropexy on the day of admission. Postoperatively, the patient was transferred to the surgical floor. The patient received IV Acetaminophen and IV dilaudid for pain control. Patient was started on bariatric phase 1 diet POD #0. On postoperative day one, the patient was feeling well without nausea, vomiting, fevers, or tachycardia. The patient had some mild incisional pain and the abdomen was soft.? On the morning of postoperative day one, the patient was continued on 1 ounce of water or ice every half hour. During the day, the patient did fairly well, having some incisional pain, but able to ambulate adequately and to tolerate liquids well. Since the patient is doing well, we decided that the patient was ready to be discharged. The patient was given instructions to follow-up with me next week and to call my office for any fever over 101, persistent abdominal pain, nausea, vomiting, GERD, symptoms of DVT such as calf tenderness, or leg swelling, or pulmonary embolism such as chest pain or shortness of breath.? The patient was also instructed to drink 40-60 ounces of liquids per day using the 1-ounce cups. The patient had been given prescriptions for Tylenol for pain, Zofran prn for nausea, and pantoprazole and carafate previously. The patient was encouraged to ambulate and use the incentive spirometer. The patient was allowed to shower, but no baths, and encouraged to stay active at home. All of these instructions were given to the patient personally. All questions were answered and the patient understood all instructions, the instructions were also given to the patient in print. Time Attestation Discharge Coordination Time (in mins): 30 Quality: Safe Use of Opioids Does Pt have an Active Cancer Diagnosis on the Problem List?: No Quality: Stroke Does the patient have a stroke diagnosis?: No Physical Exam Vital Signs: Vital Signs: Last Vital Signs Temp 97.5 F 01/14/25 17:05 Pulse 96 01/14/25 17:05 Resp 17 01/14/25 17:05 BP 107/39 L 01/14/25 17:05 Pulse Ox 98 01/14/25 17:05 O2 Del Method Shovel Mask 01/14/25 17:05 O2 Flow Rate 4 01/14/25 17:05 BMI result Body Mass Index 37.2 DS: Data Data Completed and Pending Pending studies at discharge: Pending at discharge 01/14/25 16:43 Surgical [PTH] Routine Labs on day of discharge: Laboratory Results - last 24 hr 01/14/25 12:20 Urine Test NEGATIVE Discharge Plan Discharge Anticipated Discharge Date/Time: 01/15/25 10:00 Patient Disposition: Home, Self-Care Discharge Diagnosis: s/p laparoscopic sleeve gastrectomy with gastropexy Referrals: Vilma Kelly, FILIPE [Primary Care Provider, Family Practice] - 1 Week Discharge Medications: Continued escitalopram oxalate 20 mg tablet 20 mg PO DAILY bupropion HCl 300 mg tablet extended release 24 hr 300 mg PO DAILY Discontinued Vitron-C 65 mg iron- 125 mg tablet,delayed release (DR/EC) 1 tab PO DAILY Qty: 90 0RF Rx Instructions: swallow whole; do not chew/break/dissolve/open thiamine HCl (vitamin B1) 100 mg tablet 100 mg PO DAILY Qty: 90 0RF ibuprofen 800 mg tablet 800 mg PO TID PRN (Reason: Pain) Discharge Orders: Discharge Order (Routine); Ordered 01/15/25 Ordered By: Dax Mercado Activity on Discharge: No heavy lifting Stand Alone Forms: Patient Portal Discharge page Print Language: [place] Island[place] Care Plan Goals: weight loss Health Concerns: obesity Plan of Treatment: Discharge Instructions: You may shower the day after discharge. No tub baths, sex or returning to work until discussed at first post op appointment. No alcohol, tobacco, or illegal drug use. Continue to use incentive spirometer hourly while awake. Walk in home for 5-10 minutes every 2 hours during the first week. Wear abdominal binder with activity. Activity: limit stair climbing, no bending, no heavy lifting, no driving, no exercise, no work. No lifting > 10 lbs x6 weeks post op. No driving within 24 hours of taking narcotic pain medications. Follow all meal plan instructions from your bariatric surgeon. Do not advance diet until approved by surgeon. Review bariatric handbook and call with any questions. If you do not move your bowels in the next 2 days, please take milk of magnesia over the counter. Dressing Change/Wound Care: Your incisions are covered with waterproof dressings. You can shower with these and pat dry. Do not rub over dressings or incisions. If the area is tender, you may apply an ice pack for short intervals (no more than 20 minutes on, followed by at least 20 minutes off). Do not apply heat. Do not use creams, lotions, or topical antibiotics unless instructed to do so by your surgeon. Do not hesitate to contact the office with any questions at or concerns such as: - Temperature exceeds 101.5 F, fevers, chills - Excessive pain or swelling, abdominal pain - Unexpected reaction to medication - Excessive bleeding - Continued vomiting/nausea - Incision begins to separate - Signs of infection such as increased redness, swelling, excessive pain, heat, or drainage (light blood or clear fluid is normal) - Shortness of breath - Chest pain - Leg pain or swelling - Return to ER for any emergent symptoms General instructions: Please walk around your home every 1-2hrs to prevent blood clots from forming in your legs. You do not need to wake from sleeping to walk. Please sleep in a bed or couch to prevent kinking at the hips and knees. Please take your incentive spirometer (your lung network technology instructor) home with you and use it for the next few days to prevent pneumonia. Please make sure you are consuming 40-60 ounces of total fluids per day. Avoid all carbonation. The patient's medical history has been reviewed and they are considered low risk for post op DVT and therefore DVT prophylaxis is not considered necessary. Travel after surgery was reviewed. The patient has not disclosed any travel plans during the first 30 days after surgery and they have been advised that within the first 30 days after surgery any bus, plane, train or car travel over 2 hours in duration is contraindicated due to the possibility of developing blood clots from immobility. Any travel, needs to include periods of ambulation of 10 minutes in duration every 2 hours.? The patient was instructed to discuss any plans for travel during this period with their bariatric surgeon. Follow up as scheduled in 1 week in office Assessment: s/p laparoscopic sleeve gastrectomy with gastropexy Discharge Date/Time: 01/15/25 13:10
[2025-01-14 17:56] LABS: Hematocrit 35.5 % (37.0-47.0); Hemoglobin 10.6 g/dl (12.0-16.0)
[2025-01-14 18:07] LABS: Anion Gap 14 (12-20); Blood Urea Nitrogen 16 mg/dL (9-16); Calcium 8.8 mg/dL (8.4-10.2); Carbon Dioxide 21 mmol/L (22-29); Chloride 108 mmol/L (96-108); Creatinine Clr Calc Pharmacy 106.5; Estimated Glomerular Filt Rate > 60; Potassium 4.0 mmol/L (3.3-5.1); Sodium 139 mmol/L (135-145)
[2025-01-14] MEDS: Lactated Ringers 1,000 ML 100 ML IVCONT (18:24)
--- NOTE | 2025-01-14 18:45 | PHA.MEDREC ---
Addendum entered by Kobe Landin [facility] 01/14/25 19:10: med rec reviewed Original Note: Pharmacy Consult ? Medication Reconciliation Pharmacy has completed the medication reconciliation. Spoke with pt and she was in a lot of discomfort but was able to confirm her medications with me by giving me a thumbs up or down if she was still taking the meds or not. Pt confirmed the Sucralfate, Ondansetron and Pantoprazole are to be started upon discharge from surgery, she was prescribed Gavilax Powder to take before surgery; pt finished that and pt stopped taking Omeprazole to start the Pantoprazole when she gets home from surgery.
[2025-01-14] MEDS: 0.9 % Sodium Chloride Flush 3 ML SYRINGE IVFLUSH (19:59)
[2025-01-15 03:28] VITALS: BP 124/59; PULSE 87; RESP 18; TEMP 37.1; O2SAT 96
[2025-01-15] MEDS: Lactated Ringers 1,000 ML 100 ML IVCONT (04:26)
[2025-01-15 06:04] LABS: MANUAL DIFF FLAG NO
[2025-01-15 06:07] LABS: Hematocrit 37.5 % (37.0-47.0); Hemoglobin 11.0 g/dl (12.0-16.0); Imm Gran Abs Auto 0.04 X10*3/uL (0.00-0.03); Imm Gran Pct Auto 0.4 % (0.0-0.4); Lymphocytes Absolute Auto 1.3 X10*3/uL (1.2-4.9); Mean Corpuscular HGB Conc 29.3 g/dl (31.0-35.0); Mean Corpuscular Hemoglobin 21.5 pg (27.0-33.0); Mean Corpuscular Volume 73.4 fL (80.0-98.0); NRBC Abs Auto 0.000 X10*3/uL (0.0-0.012); NRBC Pct Auto 0.0 /100WBC (0.0-0.2); Platelet Count 403 X10*3/uL (160-400); Red Blood Count 5.11 X10*6/uL (4.20-5.50); White Blood Count 10.4 X10*3/uL (4.8-10.8)
[2025-01-15 06:37] LABS: Anion Gap 15 (12-20); Blood Urea Nitrogen 12 mg/dL (9-16); Calcium 8.7 mg/dL (8.4-10.2); Carbon Dioxide 18 mmol/L (22-29); Chloride 109 mmol/L (96-108); Creatinine Clr Calc Pharmacy 128.4; Estimated Glomerular Filt Rate > 60; Potassium 4.2 mmol/L (3.3-5.1); Sodium 138 mmol/L (135-145)
[2025-01-15 06:59] VITALS: BP 140/69; PULSE 84; RESP 16; TEMP 36.4; O2SAT 99
[2025-01-15] MEDS: 0.9 % Sodium Chloride Flush 3 ML SYRINGE IVFLUSH (07:17)
[2025-01-15] MEDS: buPROPion HCl XL 300 MG TAB.ER.24H PO (08:01)
--- NOTE | 2025-01-15 08:56 | HO.POSTANES ---
Post Anesthesia Evaluation Post Anesthesia Evaluation Date of Service: 01/15/25 Vital Signs: Vital Signs Temp Pulse Resp BP Pulse Ox O2 Del Method 01/15/25 06:59 97.6 F 84 16 140/69 H 99 Room Air 01/15/25 03:28 98.7 F 87 18 124/59 L 96 Room Air 01/14/25 23:09 98.9 F 92 18 117/65 98 Room Air Anesthesia: General Mental Status: Awake Pain Control: Satisfactory Nausea/Vomiting: None Hydration: Adequate Anesthesia-Related Issues: No Anes. Related Issues
== END 2025-01-15 13:10 | disposition home or self-care (01) | DRG 620 ==
LOC: HO.SSSA 17:10 → HO.S3 17:38
PROVIDERS: Nurse Practitioner; Admitting Provider Surgery; PCP Nurse Practitioner Primary Care; Visit Provider Surgery
PROC: 0DB64Z3 Excision of Stomach, Percutaneous Endoscopic Approach, Vertical (ICD-10-PCS; CPT 43845; principal; 2025-01-14 14:30)
DX: E66.01 Morbid (severe) obesity due to excess calories (principal); Q43.3 Congenital malformations of intestinal fixation; Z68.37 Body mass index [BMI] 37.0-37.9, adult; K21.9 Gastro-esophageal reflux disease without esophagitis; F32.A Depression, unspecified; F41.9 Anxiety disorder, unspecified; Z87.891 Personal history of nicotine dependence; Z79.899 Other long term (current) drug therapy
CPT/HCPCS: 36415; 80048; 81025; 85014; 85018; 85025; 86850; 86900; 86901; 88304; 88305; 88307; 88342; A4649; C9145; J0131; J0690; J1100; J1171; J1308; J2003; J2405; J2704; J2765; J2795; J3010; J7120

== ENCOUNTER → 2025-01-14 12:22 | Outpatient (BNV) | payer OTHER, SELFPAY | PROVIDERS: Admitting Provider Surgery; PCP Nurse Practitioner Primary Care; Visit Provider Surgery | DX: E66.9 Obesity, unspecified (principal); Z68.37 Body mass index [BMI] 37.0-37.9, adult; Q43.3 Congenital malformations of intestinal fixation | CPT/HCPCS: 43659; 43775 ==

== ENCOUNTER 2025-01-21 14:27 | Outpatient (AMB) | payer OTHER, SELFPAY ==
--- NOTE | 2025-01-21 14:00 | MHC.WMTHER ---
Intake Intake Visit Reasons: VIDEO PO LSG 01/14/25 Allergies No Known Allergies Allergy (Verified 01/09/25 14:30) PFSH Medical History (Updated 01/16/25 @ 00:02 by Jason Gregorio) Obesity GERD (gastroesophageal reflux disease) Anxiety Depression Morbid obesity Surgical History (Updated 01/14/25 @ 19:20 by Dax Mercado MD) History of esophagogastroduodenoscopy (EGD) (12/10/24) Hx of wisdom tooth extraction Family History Mother No problems noted. Father No problems noted. Social History (Updated 01/09/25 @ 14:28 by Susi Barnett RN) Household Members: Family Housing: Apartment Are you a primary client care manager to a significant other at home: No Do you presently have visiting nurse or other home services: No Alcohol intake: never Patient Tobacco Use Status: Former Tobacco user Tobacco use type: Cigarette Behavioral Health Assessment Weight Management Therapy Therapy Notes Details Subjective: The patient underwent weight loss surgery on 01/14/2025. Her weight on the day of surgery was 217 lbs, with a current weight of 208 lbs as of today. She denies any pain or complications during her recovery. However, she reports difficulty tolerating the prescribed liquid diet, specifically struggling to finish her protein shakes. The patient describes her mood as ?irritated? and acknowledges ongoing hunger and frequent thoughts about food. She reports having strong family support at home. The patient expressed readiness to seek a second opinion regarding her post-operative meal plan to better address her current challenges. Objective: The patient presents for a behavioral health post-operative follow-up visit. A guided emotional check-in was conducted to assess her current functioning, recovery, mood, and emotional state. Psychoeducation was provided on the emotional and psychological adjustments commonly experienced after bariatric surgery. We also focused on distinguishing between hunger and cravings or food thoughts, exploring possible reasons for these experiences, and strategies to work on her mindset. Emphasis was placed on becoming mindful of her physical and mental needs during these times while staying on track. The importance of adhering to the Weight Management Program (WMP) providers' instructions was emphasized, including the pace of drinking and following the meal and exercise plan. Collaboratively identified specific barriers to tolerating the liquid diet and brainstormed practical strategies to improve intake (e.g., adjusting shake temperature, timing, or flavor; breaking intake into smaller, more frequent portions). Explored the patient?s readiness to seek a second opinion and supported her autonomy in advocating for her nutritional needs. Discussed how to effectively communicate concerns to her care team. Assessment/Response: Mental status: Alert, oriented, appropriately groomed. Mood: irritated; affect congruent. Thought process logical. No psychosis. Insight and judgment intact. Risk reported/identified: None Assessment & Plan Assessment & Plan (1) Panic anxiety syndrome: Code(s): F41.0 - Panic disorder [episodic paroxysmal anxiety] (2) Anxiety disorder: Code(s): F41.9 - Anxiety disorder, unspecified Plan The patient will continue with post-operative support to monitor recovery progress, address any emerging concerns, and reinforce healthy lifestyle adjustments. Next follow-up appointment is scheduled for 03/03/2025 at 2:00 pm via video. Telehealth Telehealth Telehealth Platform: [employer] Location of provider rendering services: other (Home office. [place], [place] Location of patient: other ([facility]. [place]) Patient Identification confirmed using: Name, : Yes Telehealth method: video Patient verbally consented to treatment: Yes Patient verbally consented to billing insurance company: Yes Patient informed of any privacy concerns related to visit: Yes Minutes spent on Phone/Video with Pt.: 35 [place] [id number] Tele Psytx 30 mins Patient Type Established Diagnoses Panic anxiety syndrome F41.0 Anxiety disorder F41.9 Time Spent (min) 35
== END 2025-01-21 14:52 | disposition home or self-care (01) ==
LOC: HO.HBST 14:27
PROVIDERS: PCP Nurse Practitioner Primary Care; Visit Provider Counselor Mental Health
DX: F41.0 Panic disorder [episodic paroxysmal anxiety] (principal); F41.9 Anxiety disorder, unspecified
CPT/HCPCS: 90832

== ENCOUNTER 2025-01-22 13:45 | Outpatient (AMB) | payer OTHER, SELFPAY ==
--- NOTE | 2025-01-22 14:03 | A.OFFVIS_ITS ---
VS Expanded 01/22/25 14:13 BP 124/64 Blood Pressure Location Rt brachial Blood Pressure Position Sitting Pulse 89 Pulse Source Pulse Oximeter Temp 97.9 F Temperature Source Temporal Artery Scan Pulse Oximetry 97 Oxygen Delivery Method Room Air Height 5 ft 4 in Weight 207 lb 4 oz BMI 35.6 Body Fat % 46.0 Body Fat Mass 95.2 Fat Free Mass 112 Visceral Fat Rating 10.0 Body Water % 38.7 Body Water Mass 80.2 Muscle Mass/Score 106.2 Basal Metabolic Rate/Score 2,626 Intake Visit Reasons: (OV) PO LSG 01/14/25 Accompanied by: Self / Same As Patient Allergies No Known Allergies Allergy (Verified 01/22/25 14:09) Medication List - Last Reconciled 01/22/25 by Minal Chapin CNP bupropion HCl XL 300 mg PO DAILY escitalopram oxalate 20 mg PO DAILY ondansetron 4 mg PO Q8H PRN pantoprazole 40 mg PO DAILY sucralfate 10 mL PO BID HPI Comments Details: 34?year old woman s/p LSG on?01/14/2025. Presents for 1 week post op visit. Starting weight was 239 lbs. Operative weight was 217 lbs. Weight today is 207.4 lbs, representing a 31.6 lbs weight loss since start of the program 11/11/2024. BMI today of 35.6.? No issues with constipation, but took stool softener today and had loose stools. No complaints of nausea, emesis, abdominal pain or reflux, or constipation. Will start Celebrate MVI today per Dr Zhu. Current meal plan includes: [employer] protein shake - 1oz per 15 mins Gatorade zero and water, 1/2 Gatorade bottle and 1 water bottle per day home made broth without any salt not using syringe, just takes sips instead Exercise routine includes: nothing yet Work status: works at [employer], already returned to work [employer] Medical History (Updated 01/16/25 @ 00:02 by Jason Gregorio) Obesity GERD (gastroesophageal reflux disease) Anxiety Depression Morbid obesity Surgical History (Updated 01/14/25 @ 19:20 by Dax Mercado MD) History of esophagogastroduodenoscopy (EGD) (12/10/24) Hx of wisdom tooth extraction Family History Mother No problems noted. Father No problems noted. Social History (Updated 01/09/25 @ 14:28 by Susi Barnett, ROSITA) Household Members: Family Housing: Apartment Are you a primary patient care nursing assistant to a significant other at home: No Do you presently have visiting nurse or other home services: No Alcohol intake: never Patient Tobacco Use Status: Former Tobacco user Tobacco use type: Cigarette Physical Exam Const General: cooperative, healthy appearing, comfortable and no acute distress Orientation/consciousness: patient oriented x3 GI Other: abd soft non-tender non-distended. 5 lap sites with gauze and tegaderm CDI, which were removed. Steri strips underneath were CDI. No drainage or surrounding erythema or S&S of infection. Neuro General: patient oriented x3 Assessment & Plan Assessment & Plan (1) S/P laparoscopic sleeve gastrectomy: Code(s): Z98.84 - Bariatric surgery status Category: Surgical Plan: Plan: - May shower tomorrow but no bath or submersion of abdomen in water. - Reviewed S&S of infection, incisional care - May start exercise tomorrow (or 1 week postop).? No abdominal exercises x 6 weeks. - Abdominal binder for the next 2 weeks with activity or exercise. - Continue meal plan per Dr Zhu until next f/u. - Reviewed importance of meal plan adherence and risks associated with veering from approved post op meal plan - Reviewed pantoprazole and carafate dosing. - Reminded of the pace of drinking 2 mL/min or 1oz per 15 min. - Will be emailed link for post op video for review. Follow up: 5 weeks
[2025-01-22 14:13] VITALS: BP 124/64; PULSE 89; TEMP 36.6; O2SAT 97; BMI 35.6
== END 2025-01-22 14:57 | disposition home or self-care (01) ==
LOC: HO.HBS 13:46
PROVIDERS: PCP Nurse Practitioner Primary Care; Visit Provider Nurse Practitioner
DX: E66.9 Obesity, unspecified (principal); Z68.35 Body mass index [BMI] 35.0-35.9, adult; Z98.84 Bariatric surgery status
CPT/HCPCS: 99024